=== PATIENT | female | born 1980 | race Caucasian/White ===

== ENCOUNTER 2017-07-19 21:36 | Observation (INO) | payer OTHER ==
[~2017-07-19] VITALS: Ht 165.1 cm; Wt 61.8 kg
[~2017-07-19 21:36] MED LIST: AMITRIPTYLINE H50 MG PO; BENADRYL25 MG PO; BENTYL10 MG PO; CYCLOBENZAPRINE10 MG PO; LEVOTHYROXINE125 MCG PO; NORCO 10-325 T1 EACH PO; OMEPRAZOLE20 MG PO; ULTRACET TABLE1 EACH PO
[2017-07-19] MEDS ORDERED: NORCO 5-325 TA1 EACH PO (21:54)
--- NOTE | 2017-07-20 01:28 | NUR ---
PATIENT TO FLOOR FROM ED, REPORT RECIEVED FROM MARY MEZA. PATIENT PRESENTED TO ED WITH N/V AND LEG CRAMPS. RECENT HX OF C-DIF, NEED SAMPLE FOR COLLECTION. PATIENT NASEA RESOLVED IN ED WITH PHENERGAN, ZOFRAN AND REGLAN. PAIN TOLERABLE AT THIS TIME RATES 0/10 ON PAIN SCALE. PATIENT HAS MEDICAL MARIJUANA CARD, HX OF GERD AND IBS. NO HOME MEDICATIONS AND NO KNOWN ALLERGIES TO MEDICATIONS. PATIENT OBSERVATION. NOW RESTING IN BED, CALL LIGHT IN REACH. INDEPENDANT IN ROOM.
--- NOTE | 2017-07-20 03:30 | NUR ---
PATIENT FEELING LIKE NAUSEA RETURNING, ADMINISTERED RECTAL PHENERGAN AND 0.5 MG ATIVAN IV. PATIENT UP TO BATHROOM, STOOL SAMPLE COLLECTED AND SENT. PATIENT VOIDING WELL. PATIENT REPORTS TORADOL EFFECTIVE WITH PAIN. NOW RESTING WITH EYES CLOSED.
--- NOTE | 2017-07-20 06:22 | NUR ---
PATIENT RESTED WELL SINCE ADMINISERING PHENERGAN PER RECTAL AND ATIVAN IV. VS STABLE. PATIENT CONTINUES TO VOID WELL. APPEARS COMFORTABLE RESTING WITH EYES CLOSED. AAOX3. USES CALL LIGHT APROPRIATLEY.
[2017-07-20] MEDS ORDERED: ACETAMINOPHEN-1 EACH PO (09:37)
[2017-07-20] MEDS ORDERED: [UNRECOGNIZED DRUG - REMARK] PO (09:42)
--- NOTE | 2017-07-20 09:46 | NUR ---
MED REC COMPLETE
--- NOTE | 2017-07-20 13:59 | NUR ---
PATIENT RESTING IN BED. PATIENT RATES PAIN AT A 6 OUT OF 10. PATIENT STATES SHE FEELS NAUSEATED, GIVEN EMESIS BAG. RN NOTIFIED. PATIENT UP TO BATHROOM BACK TO BED. PATIENT GIVEN ICE CHIPS. CALL LIGHT IN REACH. NO OTHER NEEDS AT THIS TIME.
--- NOTE | 2017-07-20 14:03 | NUR ---
PATIENT ALLOWED ICE CHIPS FOR COMFORT. ICE CHIPS PROVIDED AT BEDSIDE.
--- NOTE | 2017-07-20 14:21 | NUR ---
PT LAYING INBED ON LEFT SIDE TOWARDS DOOR. PLEASANT DEMEANOR, BUT OBVIOUSLY SHE IS IN PAIN. RN REFUGIO TO CARE FOR PT. EXTENDED A BLESSING TO HER, AND TOLD HER I WOULD BE PRAYING FOR HER. SHE THANKED ME-WILL FOLLOW KAITLYNN
--- NOTE | 2017-07-20 15:29 | NUR ---
PATIENTS FATHER IN ROOM. FATHER REQUESTING STRONGER PAIN MEDICINE AND WAS VERY CONCERNED. PATIENT RESTING, STILL FEELING NAUSEATED, STATED PAIN LEVEL WAS NOW AN 8 OUT OF 10. RN AND CHARGE NURSE NOTIFIED. CALL LIGHT IN REACH. NO OTHER NEEDS AT THIS TIME.
--- NOTE | 2017-07-20 18:44 | NUR ---
PATIENT RESTING IN BED, STATED PAIN LEVEL WAS A 5 OUT OF 10, AND THAT SHE HAD WATERY DIARRHEA BUT FLUSHED BEFORE THIS STEAM SERVICE INSPECTOR COULD SEE IT. RN NOTIFIED. FRESH ICE WATER AT BEDSIDE TABLE, CALL LIGHT IN REACH, NO OTHER NEEDS AT THIS TIME.
--- NOTE | 2017-07-20 18:55 | NUR ---
PATIENT WALKED ALONE TO HIS ROOM DOOR. SENIOR SHAREPOINT DEVELOPER WALKED WITH HIM BACK TO BATHROOM. THIS SENIOR SHAREPOINT DEVELOPER TALKED TO THE PATIENT ABOUT CALLING FOR HELP AND WAITING FOR THE HELP BEFORE HE GETS UP. PATIENT STATED THAT HE WAS TOLD HE CAN WALK AROUND IN HIS ROOM BY HIMSELF. PATIENT UNDERSTANDS TO PULL THE CALL CORD BEFORE HE STANDS UP IN BATHROOM. RN NOTIFIED AND WILL RENFORCE USING CALL LIGHT AND ASSISTANCE.
--- NOTE | 2017-07-20 19:12 | NUR ---
PATIENT HAS HAD C/O OF SOME KIND OF ABD DISCOMFORT AND OR NAUSEA FOR MOST OF DAY. SHE WAS ADVANCED TO FULL LIQUIDS AFTER SHE SHE STARTED BENTYL THIS AFTERNOON. BEFORE SHE WOULD SLEEP WITH 1MG OF ATIVAN IV AND 12.5 OF IV PHENERGAN, ZOFRAN AND KETORALAC SEEMED NOT TO HELP MUCH AT ALL.
--- NOTE | 2017-07-20 19:20 | NUR ---
RECEIVED REPORT, PT IS SLEEPING AT THIS TIME. CALL LIGHT IS WITHIN REACH.
--- NOTE | 2017-07-20 20:30 | NUR ---
PT IS AWAKE IN BED AND ASKED FOR ATIVAN FOR ANXIETY. PT STATES SHE HAS 7/10 ABDOMINAL CRAMPING PAIN AND DENIED BENTYL AT THIS TIME STATING SHE WANTS SOMETHING STRONGER BUT THE DOCTOR WOULD NOT PRESCRIBE IT. PT WAS OK WITH TAKING THE ATIVAN AT THIS TIME AND HOPED IT WOULD ALSO HELP HER SLEEP. BROUGHT PATIENT MIKO AND CHICKEN BROTH. SHE DENIES FURTHER NEEDS AT THIS TIME.
--- NOTE | 2017-07-21 00:34 | NUR ---
IV WAS BEEPING, PT STATED SHE NEEDS MORE ATIVAN. ADMINISTERED ATIVAN, PT DENIES FURTHER NEEDS AT THIS TIME
--- NOTE | 2017-07-21 03:30 | NUR ---
PT IS RESTING IN BED WITH EYES CLOSED, RESPIRATION ARE EVEN AND NONLABORED. CALL LIGHT IS WITHIN REACH.
--- NOTE | 2017-07-21 05:34 | NUR ---
PT SLEPT WELL MOST OF THE NIGHT. SHE REQUIRED ATIVAN X2 THROUGH THE NIGHT. PRN NORCO IS AVAILABLE IF NEEDED. PT TOLERATED BROTH AND JELLO WITHOUT NAUSEA. D5LR IS RUNNING AT 125MLS/HR. PT IS INDEPENDENT IN ROOM.
--- NOTE | 2017-07-21 07:41 | NUR ---
BEDSIDE REPORT RECEIVED FROM TWELVE MILE. PATIENT ASLEEP DURING REPORT. NO APPARENT DISTRESS NOTED. CALL LIGHT IN REACH. WILL CONTINUE TO MONITOR
--- NOTE | 2017-07-21 09:00 | NUR ---
PATIENT FOUND IN BED AWAKE, REPORTS GENERALIZED AND MILD ABD PAIN. NO NAUSEA. PATIENT ABLE TO EAT SOME JELLO AND DRINK SOME JUICE. LUNGS CLEAR, ABD SOFT AND TENDER TO PALPATION. BRUISES NOTED IN THE LOWER EXTREMITIES. NO PARENT DISTRESS. MORNING MEDS ADMINISTERED AND PATIENT WAS MEDICATED FOR PAIN AND ANXIETY. CALL LIGHT IN REACH. WILL CONTINUE TO MONITOR.
--- NOTE | 2017-07-21 09:45 | NUR ---
PATIENT SITTING UP IN BED EATING BREAKFAST. PATIENT STATED SHE WASNT IN PAIN BECAUSE THEY HAD JUST GIVEN HER A PAIN PILL, BUT JUST DIDNT FEEL LIKE EATING AND FELT NAUSEATED. CALL LIGHT IN REACH. FRESH ICE WATER ON BEDSIDE TABLE. NO OTHER NEEDS AT THIS TIME.
[2017-07-21] MEDS ORDERED: PIMTREA 28 DAY1 EACH PO (10:27)
--- NOTE | 2017-07-21 10:28 | NUR ---
MD ADVANCED DIET TO GENERAL AND ADVANCED TOLERATED. ORDERED BREAKFAST TRAY FOR PATIENT. RESTING IN BED AT THIS TIME.
[2017-07-21] MEDS ORDERED: DICYCLOMINE HCL10 MG PO (11:41)
[2017-07-21] MEDS ORDERED: PROMETHAZINE12.5 M1 PO (11:42)
== END 2017-07-21 13:10 | disposition home or self-care (01) ==
LOC: ED 21:36 → MS 21:38
PROVIDERS: ADMIT Internal Medicine
DX: A08.4 Viral intestinal infection, unspecified (principal); K58.9 Irritable bowel syndrome, unspecified; F41.9 Anxiety disorder, unspecified; E03.9 Hypothyroidism, unspecified; G89.4 Chronic pain syndrome; Z87.891 Personal history of nicotine dependence; Z86.19 Personal history of other infectious and parasitic diseases; Z79.3 Long term (current) use of hormonal contraceptives; Z79.891 Long term (current) use of opiate analgesic; Z79.899 Other long term (current) drug therapy
CPT/HCPCS: 80053; 81001; 83690; 84703; 85025; 87045; 87046; 87493; 96361; 96374; 96375; 96376; 99285; G0378; J1170; J1885; J2060; J2405; J2550; J2765; J3480; J7030; J7120

== ENCOUNTER 2018-05-17 06:45 | Day surgery (SDC) | payer OTHER ==
[~2018-05-17] VITALS: Ht 165.1 cm; Wt 61.2 kg
[~2018-05-17 06:45] MED LIST changes: +ACETAMINOPHEN-1 EACH PO; +CIPRO500 MG PO; +DICYCLOMINE HCL10 MG PO; +FIRVANQ25 MG/1 ML PO; +LAMOTRIGINE100 MG PO; +LAMOTRIGINE150 MG PO; +LEVOTHYROXINE150 MCG PO; +NORCO 5-325 TA1 EACH PO; +PIMTREA 28 DAY1 EACH PO; +PRILOSEC10 M1 PO; +PROMETHAZINE HC25 M1 PO; +PROMETHAZINE12.5 M1 PO; +PYRIDIUM200 MG PO; +ZOFRAN ODT4 MG PO; +[UNRECOGNIZED DRUG - REMARK] PO
--- NOTE | 2018-05-17 08:45 | NUR ---
PATIENT UP TO BATHROOM. TAMPON REMOVED. PATIENT AMBULATES WELL WITH RN STANDBY. PATIENT BACK IN BED.
--- NOTE | 2018-05-17 09:41 | NUR ---
05/17/18 0941 Dunia Durbin 0932- PT ARRIVES TO PACU. AROUSABLE TO VOICE. PT INSTANTLY BACK TO SLEEP. RESP EVEN AND UNLABORED. OXYGEN SAT HIGH 90'S TO 100% ON 6L VIA MASK. 0936- OXYGEN TURNED OFF. OXYGEN SAT HIGH 90'S TO 100% ON RA.
--- NOTE | 2018-05-17 11:28 | NUR ---
LE 1015: ICED WATER AND JELLO GIVEN. PATIENT TOLERATING THAT WELL. AKASH ESTEVEZ ON WARM. LE 1100: PATIENT UP TO THE BATHROOM WITH RN STANDBY. PATIENT AMBULATES WELL AND REPORTS BLOOD TINGED VOID. LE 1125: DC INSTRUCTIONS GIVEN. PATIENT VERBALIZES UNDERSTANDING OF INSTRUCIONS AND IS DRESSING HERSELF. PATIENT TRANSFERS HERSELF TO .
--- NOTE | 2018-05-17 12:48 | NUR ---
PT ALERT, ORIENTED AND SUPPORTED BY HER FATHER. PT SEEMS RELAXED, INFORMED AND HAD NO QUESTIONS. THANKED ME FOR VISITING, EXTENDED A BLESSING. WILL FOLLOW NEEDED
--- NOTE | 2018-05-18 19:21 | OR ---
[facility] [address], [place] [address] Signed DATE OF OPERATION: 05/17/2018 SURGEON: Patricia Ernandez MD PREOPERATIVE DIAGNOSES: 1. Interstitial cystitis. 2. History of recurrent urinary tract infection. POSTOPERATIVE DIAGNOSES: 1. Interstitial cystitis. 2. History of recurrent urinary tract infection. NAME OF PROCEDURE: Diagnostic cystoscopy with hydrodistention. ANESTHESIA: General LMA. ESTIMATED BLOOD LOSS: Minimal. COMPLICATIONS: None. SPECIMENS: None. DRAINS: None. INDICATIONS FOR PROCEDURE: Shelby is a very pleasant 38-year-old female with a history of chronic abdominopelvic discomfort, recurrent UTIs, and dehydration. She was recently evaluated at [facility] on May 05 and admitted for dehydration/urinary tract infection. She does reportedly experience intermittent urinary tract infections. However, I have yet to see any positive cultures. She also has a known history of interstitial cystitis for which she has elected to undergo diagnostic cystoscopy with hydrodistention today. After discussion of the risks and benefits of the procedure, the patient elected to proceed. OPERATIVE FINDINGS: Electronically Signed By: PATRICIA ERNANDEZ MD 05/18/18 1921 PATIENT NAME: SHELBY NAVARRO OPERATIVE REPORT DATE OF : 78 REPORT #: [id number] PHYSICIAN: PATRICIA ERNANDEZ MD PCP: NINFA HEATH REPORT IS CONFIDENTIAL AND NOT TO BE RELEASED WITHOUT AUTHORIZATION [facility] [address], [place] [address] Signed 1. Cystoscopy reveals no evidence of any suspicious masses, lesions, or stones. Bilateral ureteral orifices are in their normal anatomic location effluxing clear urine. 2. Overall, the bladder mucosa appears within normal limits, with no evidence of any Hunner ulcers or petechiae. 3. The patient's bladder had a total capacity of 1200 mL, with evidence of good compliance. There was no significant leakage of fluid during filling. The irrigant was held within her bladder for a total of 8 minutes prior to release of the fluid. DESCRIPTION OF PROCEDURE: After informed consent was obtained, the patient was taken back to the operating room. She was transferred from the [facility] to the operating room table, where general anesthesia was induced. She was placed in the dorsal lithotomy position and the genitalia prepped and draped in standard sterile fashion. Using a 30-degree lens on a 22-1/2-Comoran introducer, a rigid cystoscope was inserted through the urethra into her bladder under direct visualization. Panendoscopic views of the bladder were then obtained. Please see those findings. I emptied the patient's bladder twice after irrigating it a couple of times and then I began to fill the bladder. Please see those findings. The patient's bladder filled approximately to 1200 mL and was kept at that capacity for approximately 8 minutes. The patient's bladder was then drained and the cystoscope was then removed. The patient tolerated the procedure well without any complication. She will now be transferred to the postanesthesia care unit in stable condition. DISPOSITION: I discussed the details of today's procedure with the patient and answered all of her questions. She will be sent home today with Cipro for a total of 7 days, along with Pyridium 200 mg p.o. b.i.d. p.r.n. dysuria, dispense #15. She will be scheduled to return to clinic for her first postoperative evaluation in approximately 6 weeks. MD VIC Altamirano/MODL /[id number] Copies: Electronically Signed By: PATRICIA ERNANDEZ MD 05/18/18 192 PATIENT NAME: SHELBY NAVARRO LOYDA OPERATIVE REPORT DATE OF : 78 REPORT #: [id number] PHYSICIAN: PATRICIA ERNANDEZ MD PCP: NINFA HEATH REPORT IS CONFIDENTIAL AND NOT TO BE RELEASED WITHOUT AUTHORIZATION [facility] [address] [place] [id number] Signed ~ Electronically Signed By: PATRICIA ERNANDEZ MD 05/18/181920 PATIENT NAME: SHELBY NAVARRO OPERATIVE REPORT DATE OF : [birth year] REPORT #: [id number] PHYSICIAN: PATRICIA ERNANDEZ MD PCP: NINFA HEATH REPORT IS CONFIDENTIAL AND NOT TO BE RELEASED WITHOUT AUTHORIZATION
== END 2018-05-17 11:30 | disposition home or self-care (01) ==
LOC: DS 06:45 → OPS 06:45 → DS 09:00 → OPS 09:00
PROVIDERS: Urology
PROC: 0T7B8ZZ Dilation of Bladder, Via Natural or Artificial Opening Endoscopic (ICD-10-PCS; principal; 2018-05-17 09:00)
DX: N30.11 Interstitial cystitis (chronic) with hematuria (principal); E03.9 Hypothyroidism, unspecified; K58.9 Irritable bowel syndrome, unspecified; E86.0 Dehydration; Z98.890 Other specified postprocedural states; Z87.440 Personal history of urinary (tract) infections; Z79.1 Long term (current) use of non-steroidal anti-inflammatories (NSAID); Z79.899 Other long term (current) drug therapy; Z87.891 Personal history of nicotine dependence
CPT/HCPCS: 00910; 36415; 81001; 84703; 85025; 85610; 87077; 87088; 87186; J0696; J1100; J1885; J2250; J2405; J2550; J2704; J3010; J7120

== ENCOUNTER 2018-07-01 19:16 | Emergency (ER) | payer OTHER ==
[~2018-07-01] VITALS: Ht 165.1 cm; Wt 63.5 kg
--- OUTSIDE RECORDS SUMMARY | 2018-07-01 19:18 | XMS ---
PreManage Notification: YARELI NAVARRO Security Marriage Therapist Events No recent Security Events currently on file CRITERIA MET - MARCINP CARE PROVIDERS LJ DUQUE Nurse Practitioner: Family Current PHONE: Unknown LJ DUQUE Primary Care Current PHONE: Unknown Javier Shannon MD Primary Care Current PHONE: Unknown orelizabeth Case or Tower Switch Operator Current PHONE: Unknown Susy has no Care Guidelines for this patient. Kristel VISIT COUNT (12 MO.) [address] [place] [address] [facility] TOTAL 6 NOTE: Visits indicate total known visits. ED/UCC VISIT TRACKING (12 MO.) 07/01/2018 19:17 [facility] [place] TYPE: Emergency COMPLAINT: - DIZZINESS 05/05/2018 19:07 [facility] [place] TYPE: Emergency DIAGNOSES: - Acute cystitis with hematuria - back and side pain nausea vomiting abd pain - Interstitial cystitis (chronic) without hematuria 03/25/2018 18:03 [facility] [place] TYPE: Emergency DIAGNOSES: - SEVERE ABD PAIN, PUKING WITH BLOOD 03/20/2018 18:39 [facility] [place] TYPE: Emergency COMPLAINT: - CHEST PAIN/SOB DIAGNOSES: - Epigastric pain - Personal history of nicotine dependence - Gastro-esophageal reflux disease without esophagitis - Other skilled nursing (current) drug therapy 11/20/2017 16:07 [facility] [place] TYPE: Emergency COMPLAINT: - C-DIFF INFECTION DIAGNOSES: - Hypomagnesemia - Unspecified abdominal pain - Other chronic pain - Hypokalemia - 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 - manager intermediate (current) use of opiate analgesic - ENTEROCOLITIS DUE TO CLOSTRIDIUM DIFFICILE, RECURRENT - Hypothyroidism, unspecified - manager intermediate (current) use of hormonal contraceptives - Irritable bowel syndrome without diarrhea 07/19/2017 21:37 [facility] [place] TYPE: Emergency COMPLAINT: - N/V/D,ABD CRAMPING INPATIENT VISIT TRACKING (12 MO.) 03/25/2018 18:03 [facility] [place] TYPE: Medical Surgical DIAGNOSES: - SEVERE ABD PAIN, PUKING WITH BLOOD - Noninfective gastroenteritis and colitis, unspecified - Acidosis 11/20/2017 16:08 [facility] [place] TYPE: Medical Surgical COMPLAINT: - C-DIFF INFECTION DIAGNOSES: - Other chronic pain - snf (current) use of hormonal contraceptives - Hypokalemia - snf (current) use of opiate analgesic - Enterocolitis due to Clostridium difficile, recurrent - Hypothyroidism, unspecified - Irritable bowel syndrome without diarrhea - Unspecified abdominal pain - Hypomagnesemia - 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
[2018-07-01] MEDS ORDERED: SYNTHROID175 MCG PO (19:29)
== END 2018-07-01 21:00 | disposition home or self-care (01) ==
LOC: ED 19:16
DX: S06.0X9A Concussion with loss of consciousness of unspecified duration, initial encounter (principal); K21.9 Gastro-esophageal reflux disease without esophagitis; Z90.49 Acquired absence of other specified parts of digestive tract; Z79.899 Other long term (current) drug therapy; W01.10XA Fall on same level from slipping, tripping and stumbling with subsequent striking against unspecified object, initial encounter
CPT/HCPCS: 70450; 96361; 96374; 99284-25; J2405; J7030

== ENCOUNTER 2018-10-06 07:55 | Day surgery (SDC) | payer OTHER ==
[~2018-10-06] VITALS: Ht 165.1 cm; Wt 63.5 kg
[~2018-10-06 07:55] MED LIST changes: +LAMICTAL150 MG PO; +SYNTHROID175 MCG PO
[2018-10-06] MEDS ORDERED: NORCO 5-325 TA1 EACH PO (08:09)
--- NOTE | 2018-10-07 12:57 | OR ---
[facility] [address], [place] [address] Signed DATE OF OPERATION: 10/06/2018 SURGEON: Shayy Becerra MD SIDEHAND: Shane Aguilera MD PREOPERATIVE DIAGNOSES: Pelvic pain, dysmenorrhea, interstitial cystitis, irritable bowel syndrome. POSTOPERATIVE DIAGNOSES: Pelvic pain, dysmenorrhea, interstitial cystitis, irritable bowel syndrome. PROCEDURES PERFORMED: Total laparoscopic hysterectomy, bilateral salpingectomy, and cystoscopy. ANESTHESIA: General ET. ESTIMATED BLOOD LOSS: 50 mL. DRAINS: Berry catheter. PACKS: None. INDICATIONS AND FINDINGS: The patient is a 38-year-old female, 2, para 1, SAB 1, who has been having worsening pelvic pain and dysmenorrhea. She has undergone prior tubal ligation, but is also on control pills to manage her periods. Unfortunately, she also has irritable bowel syndrome as well as significant frequent nausea and vomiting and dehydration. She also has interstitial cystitis. The patient was extensively counseled and she wished to proceed with hysterectomy, though, she was strongly reminded that this would not control any pain from her interstitial cystitis or her irritable bowel syndrome. At the time of surgery exam under anesthesia was normal. At the time of laparoscopy, the pelvis appeared normal other than prior tubal ligation and some scarring of the bladder to the anterior uterus following her . Electronically Signed By: SHAYY BECERRA MD 10/07/18 1257 PATIENT NAME: HOYARELI SMITH OPERATIVE REPORT DATE OF : 78 REPORT #: [id number] PHYSICIAN: SHAYY BECERRA MD PCP: NINFA HEATH REPORT IS CONFIDENTIAL AND NOT TO BE RELEASED WITHOUT AUTHORIZATION [facility] [address], [place] [address] Signed DESCRIPTION OF PROCEDURE: The patient was prepped and draped in the dorsal lithotomy position. A weighted speculum was placed and the anterior lip of the cervix was visualized and grasped with a single-tooth tenaculum. The cavity was sounded to 7 cm. The endocervical canal was then dilated and the VCare cannula was placed and the balloon inflated at the fundus. The tenaculum and speculum were removed and the cup was fitted over the cervix and a locking cup fitted into place. Attention was then directed above. The infraumbilical area was injected with 0.5% Marcaine plain and incision was made with a knife. Each layer was then serially elevated and incised until the fascia was opened and identified. Stay sutures were placed on the fascia. The peritoneum was opened bluntly and the Richard cannula was placed and tied into place. Placement of the scope confirmed proper positioning. CO2 was then introduced in the abdomen. The initial sweep of the abdomen appeared fairly normal pelvis and the decision was made to proceed. The secondary ports were placed laterally and slightly below the umbilicus. These areas were transilluminated and injected with the Marcaine and incision made with a knife, and the trocars were placed under direct vision. The left port was a 5 mm port and the right was the Veress needle followed by the expanding port. Following this, the LigaSure [place] device was used to serially coagulate and divide the left mesosalpinx and the specimen was removed. Following this, the left utero-ovarian pedicle and left round ligament were serially coagulated and divided. Dissection was done posteriorly allowing the posterior peritoneum to come down. There was some scarring anteriorly because of the prior and this was divided after coagulation high on the uterus given the scarring. However, this allowed the uterine vessels to be skeletonized and these were coagulated multiple times and then divided. Following this, attention was directed to the patient's right side. Again, the tube on the right was serially coagulated along the mesosalpinx and excised. The right utero-ovarian pedicle and right round ligament were serially coagulated and divided. The anterior peritoneum could be incised allowing for a partial bladder flap. There was some less scarring on the patient's right compared to the left. The peritoneum was taken down posteriorly as well. The uterine vessels were skeletonized and were coagulated multiple times and divided. Further dissection was done anteriorly, which allowed the bladder to come down more fully off the cervix and the outline of the cup could be identified at that time anteriorly. Further dissection was done both posterior and anteriorly and more on the patient's left side around the uterine vessel area and at that point, it was felt that the specimen was capable being removed. The [employer] device was used to separate the specimen from the cuff. Following this, the specimen was pulled out through the vagina intact. A glove with a wet lap tape was placed into the vagina, which allowed the pneumoperitoneum to re-accumulate in the abdomen. The pelvis was copiously irrigated and inspected. There was some bleeding points along the cuff and into the left and right uterine vessel areas and these were coagulated using the Maryland device. There were a few bleeding points on the bladder flap area and these were controlled using the Electronically Signed By: SHAYY BECERRA MD 10/07/18 1257 PATIENT NAME: YARELI NAVARRO OPERATIVE REPORT DATE OF : 78 REPORT #: [id number] PHYSICIAN: SHAYY BECERRA MD PCP: NINFA HEATH REPORT IS CONFIDENTIAL AND NOT TO BE RELEASED WITHOUT AUTHORIZATION [facility] [address], [place] [address] Signed spatula tip and monopolar cautery. At this point, it was felt that there was good hemostasis and the cuff was closed using the EndoStitch that was begun at the patient's right uterosacral ligament taking care to incorporate both the peritoneum as well as the vaginal mucosa posteriorly and anteriorly and this was run to the patient's left uterosacral ligament and then back to the center. The abdomen was again copiously irrigated, inspected, and good hemostasis was noted. The bladder flap area was fairly raw given her prior scarring and Evicel was dribbled over the cuff to aid in further in hemostasis. The instruments were removed from the abdomen after allowing as much CO2 as possible to escape. The fascial incision at the umbilicus was re-identified and closed with a running suture of 0 Vicryl. The skin incisions were closed with subcuticular sutures of 3-0 Vicryl Rapide. Attention was directed down below and the vaginal packing was removed as was the Berry catheter. Cystoscopy was then done. The patient had received IV fluorescein. The bladder was fully evaluated and there was no evidence of any injury to the bladder. Both ureteral orifices were identified and freed. The egress of the fluorescein stained urine was seen coming from each location. At this point, the cystoscopy was complete and the bladder drained. The Berry catheter was replaced. All sponge and needle counts were correct. She tolerated the procedure well and was taken to the recovery room in good condition. Shayy Becerra MD PJW/JUNITOL /[id number] cc: MD Molly House FNP Copies: SHANE AGUILERA MD, SHARA FNP ~ Electronically Signed By: SHAYY BECERRA MD 10/07/18 1257 PATIENT NAME: YARELI NAVARRO OPERATIVE REPORT DATE OF : 78 REPORT #: [id number] PHYSICIAN: SHAYY BECERRA MD PCP: NINFA HEATH REPORT IS CONFIDENTIAL AND NOT TO BE RELEASED WITHOUT AUTHORIZATION
== END 2018-10-07 09:30 | disposition home or self-care (01) ==
LOC: DS 07:55 → MS 17:30 → DS 10-07 09:30
PROVIDERS: Obstetrics & Gynecology
PROC: 0UT94ZZ Resection of Uterus, Percutaneous Endoscopic Approach (ICD-10-PCS; principal; 2018-10-06 09:30)
PROC: 0UT74ZZ Resection of Bilateral Fallopian Tubes, Percutaneous Endoscopic Approach (ICD-10-PCS; 2018-10-06 09:30)
DX: N87.9 Dysplasia of cervix uteri, unspecified (principal); N88.8 Other specified noninflammatory disorders of cervix uteri; N30.10 Interstitial cystitis (chronic) without hematuria; K58.2 Mixed irritable bowel syndrome; N94.6 Dysmenorrhea, unspecified; K21.9 Gastro-esophageal reflux disease without esophagitis; Z79.899 Other long term (current) drug therapy
CPT/HCPCS: 00840; 51702; 51798; J1100; J1644; J1885; J2250; J2270; J2405; J2550; J2704; J2765; J3010; J7060; J7120

== ENCOUNTER 2019-01-19 16:52 | Emergency (ER) | payer OTHER ==
[~2019-01-19] VITALS: Ht 165.1 cm; Wt 63.5 kg
--- OUTSIDE RECORDS SUMMARY | 2019-01-19 16:54 | XMS ---
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 EIsabell VISIT COUNT (12 MO.) 2 [facility] [address] [facility] TOTAL 5 NOTE: Visits indicate total known visits. ED/UCC VISIT TRACKING (12 MO.) 01/19/2019 16:53 [facility] [place] TYPE: Emergency COMPLAINT: - ABD/PELVIC PAIN 07/01/2018 19:17 [facility] [place] TYPE: Emergency COMPLAINT: - DIZZINESS DIAGNOSES: - Acquired absence of other specified parts of digestive tract - Concussion with loss of consciousness of unspecified duration, initial encounter - Gastro-esophageal reflux disease without esophagitis - Other snf (current) drug therapy - Dizziness and giddiness - Fall on same level from slipping, tripping and stumbling with subsequent striking against unspecified object, initial encounter 05/05/2018 19:07 [facility] [place] TYPE: Emergency DIAGNOSES: - Acute cystitis with hematuria - back and side pain nausea vomiting abd pain - Interstitial cystitis (chronic) without hematuria 03/25/2018 18:03 [facility] [place] TYPE: Emergency DIAGNOSES: - SEVERE ABD PAIN, PUKING WITH BLOOD 03/20/2018 18:39 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
[2019-01-19] MEDS ORDERED: NORCO 5-325 TA1 EACH PO (18:43)
[2019-01-19] MEDS ORDERED: ONDANSETRON ODT8 MG PO (18:43)
== END 2019-01-19 18:53 | disposition home or self-care (01) ==
LOC: ED 16:52
DX: N83.201 Unspecified ovarian cyst, right side (principal); K21.9 Gastro-esophageal reflux disease without esophagitis; Z87.891 Personal history of nicotine dependence; Z79.899 Other long term (current) drug therapy
CPT/HCPCS: 76830; 76856; 80053; 85025; 96374; 96375; 99284-25; J1170; J1885; J2405; J7040

== ENCOUNTER 2019-01-21 12:38 | Inpatient (IN) | payer OTHER ==
[~2019-01-21] VITALS: Ht 167.6 cm; Wt 52.2 kg
--- NOTE | ~2019-01-21 | CONS ---
[facility] [address] [place], [place] [address] Draft DATE OF CONSULTATION: 01/22/2019 REQUESTING PHYSICIANS: 1. Fernando Roberts MD. 2. Ran Kerr MD. HISTORY OF PRESENT ILLNESS: The patient is a 38-year-old female, 2, para 1, SAB 1, status post a TLH-BS for benign indications on October 06. The patient had a previous uncomplicated postop course and is more than 14 weeks from her surgery. She has had granulation tissue off and on, which was last treated several weeks ago. The patient was seen in the office on Thursday the with acute right lower quadrant pain following intercourse. The patient had terrible pain following this with a sensation of going to faint. She stayed in bed pretty much all day that day. She also had some vaginal spotting that day. She was seen in the emergency room after this episode with normal vital signs and a slightly elevated white count of 15. She was afebrile. She had an ultrasound, which showed a small amount of pelvic fluid, was otherwise negative for any masses or other issues. She was discharged home with pain medicine. She felt continually better following her ER visit and felt completely normal as well as normal on Thursday morning. However, on Thursday, she began having some nausea with subsequent vomiting. She began having more diffuse abdominal pain. The pain now is not localized to the right lower quadrant, though that might be the worst location. It is constant. It is worse with any movement or with a full bladder. She also developed fever on Thursday night up to 101.7. The patient also noticed a copious clear discharge vaginally beginning on the . REVIEW OF SYSTEMS: Positive for the fever. Positive for abdominal pain, nausea, vomiting, and constipation. She also reports she had anorexia. She is having abnormal vaginal discharge, though no dysuria. PAST MEDICAL HISTORY: Allergies: None. MEDICATIONS: Levothyroxine 175 mcg. PROBLEM LIST: Constipation, reflux, unspecified acquired hypothyroidism, interstitial cystitis, irritable bowel, recurrent UTIs. PAST SURGICAL HISTORY: 1. On October 06, TLH-BS. PATIENT NAME: YARELI NAVARRO CONSULTATION DATE OF : 78 REPORT #: [id number] PHYSICIAN: LASHANDA DALTON MD PCP: NINFA HEATH REPORT IS CONFIDENTIAL AND NOT TO BE RELEASED WITHOUT AUTHORIZATION [facility] [address] [place], [place] [address] Draft 2. 05/17/2018, cystoscopy. 3. 07/12/2015, bilateral tubal ligation. . 10/2013, laparoscopic cholecystectomy. 11/2012, left wrist surgery. 07/2011, . 01/1997, appendectomy. FAMILY HISTORY: Positive for her mother with depression. Maternal grandfather, lymphoma. Maternal grandmother, depression. Maternal uncle, depression with suicide. Maternal aunt with depression and suicide. SOCIAL HISTORY: Alcohol use none. She is . 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 She is a former smoker. PHYSICAL EXAMINATION: VITAL SIGNS: Her blood pressure is 93/59, pulse 86, and temp 97.7. GENERAL: She is a well-developed, well-nourished female, in moderate distress, lying quietly in the bed. HEART: Regular rate and rhythm without murmur. LUNGS: Clear. ABDOMEN: With positive bowel sounds, but diffusely tender, though worse in the right lower quadrant. She has diffuse rebound as well. PELVIC: Deferred. LABORATORY DATA: CT scan reveals moderate inflammatory changes throughout the pelvis and lower abdominal mesentery. There is some poorly defined and inflamed appearing loops of small bowel within the pelvis, inflammatory changes around the rectum and distal sigmoid. The ovaries were poorly visualized, but appeared normal. There was a small volume of pelvic fluid and mild circumferential bladder wall thickening. Labs this morning revealed a white count of 10.7, H and H of 10.5 and 31.4, neutrophils 84, lymphocytes 7.5, monocytes 6.8, sedimentation rate 21. Chemistry panel is unremarkable. Urine is unremarkable as well. IMPRESSION: Worsening pelvic pain in a woman, who is more than 14 weeks from a [facility]. She has some inflammatory changes in the pelvis on CT scan. She also has had new onset of clear vaginal discharge. I am concerned that she may have developed a small bowel fistula to the vaginal cuff and the diagnosis is uncertain. I think further evaluation is needed. A laparoscopy would allow for evaluation of the abdomen and pelvis. If there is a fistula noted, this can be repaired. Dr. Kerr will also be attending the surgery in case his services are needed. The patient has been extensively counseled. She understands the risks of surgery including infection and bleeding are present. She also PATIENT NAME: YARELI NAVARRO CONSULTATION DATE OF : 78 REPORT #: [id number] PHYSICIAN: LASHANDA DALTON MD PCP: NINFA HEATH REPORT IS CONFIDENTIAL AND NOT TO BE RELEASED WITHOUT AUTHORIZATION [address] [address] [place] understands that a possible laparotomy may be needed for repair should the bowel issue be encountered. She had no questions, requested no further information. PLAN: Laparoscopy, possible laparotomy, possible repair of bowel, . MD RYAN Rojas/YASMIN /[id number] Copies: ~ PATIENT NAME: YARELI NAVARRO CONSULTATION DATE OF : 78 REPORT #: [id number] PHYSICIAN: LASHANDA DALTON MD PCP: NINFA HEATH REPORT IS CONFIDENTIAL AND NOT TO BE RELEASED WITHOUT AUTHORIZATION
[~2019-01-21 12:38] MED LIST changes: +ONDANSETRON ODT8 MG PO
--- OUTSIDE RECORDS SUMMARY | 2019-01-21 12:40 | XMS ---
PreManage Notification: YARELI NAVARRO [place] [employer] Events No recent Security Events currently on file CRITERIA MET - PDMP - [facility] - 2 Visits in 30 Days CARE PROVIDERS Anamika Bonilla Nurse Practitioner: 07/02/2018-Current PHONE: Unknown Molly Duque Nurse Practitioner: Family Lenard JANSENP PHONE: Unknown MOLLY DUQUE Primary Care Current PHONE: Unknown Javier Shannon MD Primary Care Current PHONE: Unknown or_viktor Case or Account Classification Clerk Current PHONE: Unknown Susy has no Care Guidelines for this patient. Kristel VISIT COUNT (12 MO.) [address] Darian Yip TOTAL 6 NOTE: Visits indicate total known visits. ED/UCC VISIT TRACKING (12 MO.) 01/21/2019 12:38 [facility] TYPE: Emergency COMPLAINT: - ABD PAIN 01/19/2019 16:53 [facility] TYPE: Emergency COMPLAINT: - ABD/PELVIC PAIN 07/01/2018 19:17 [facility] TYPE: Emergency COMPLAINT: - DIZZINESS DIAGNOSES: - Acquired absence of other specified parts of digestive tract - Concussion with loss of consciousness of unspecified duration, initial encounter - Gastro-esophageal reflux disease without esophagitis - Other chcf (current) drug therapy - Dizziness and giddiness - Fall on same level from slipping, tripping and stumbling with subsequent striking against unspecified object, initial encounter 05/05/2018 19:07 [facility] OR TYPE: Emergency DIAGNOSES: - Acute cystitis with hematuria - back and side pain nausea vomiting abd pain - Interstitial cystitis (chronic) without hematuria 03/25/2018 18:03 [facility] TYPE: Emergency DIAGNOSES: - SEVERE ABD PAIN, PUKING WITH BLOOD 03/20/2018 18:39 [facility] TYPE: Emergency COMPLAINT: - CHEST PAIN/SOB DIAGNOSES: - Epigastric pain - Personal history of nicotine dependence - Gastro-esophageal reflux disease without esophagitis - Other chcf (current) drug therapy INPATIENT VISIT TRACKING (12 MO.) 03/25/2018 18:03 [facility] TYPE: Medical Surgical DIAGNOSES: - SEVERE ABD PAIN, PUKING WITH BLOOD - Noninfective gastroenteritis and colitis, unspecified - Acidosis [email or web address]
--- NOTE | 2019-01-21 17:43 | NUR ---
1644: PT ARRIVED TO MED-SURG AND ORIENTED TO THE ROOM AND GIVEN THE CALL MANDUJANO. PT ARRIVED WITH HER MOTHER FROM THE ED. SHE STATES SHE HAS ABD PAIN THAT HAS BEEN WORSE SINCE . PT MEDICATED FOR PAIN, SEE EMAR. PT ALERT AND ORIENTED. TEMP 101.1 AND WAS MEDICATED WITH TYLENOL AND GIVEN AN IS AND INSTRUCTED IN IT'S USE. PT NOW STATES HER PAIN LEVEL IS A 6/10 WHICH IS DOWN FROM AN 8.
--- NOTE | 2019-01-21 18:47 | NUR ---
PT STATES HER ABD PAIN IS A 5/10 WHICH IS NOW ACCEPTABLE. SHE COMPAINS OF NAUSEA AND WAS MEDICATED ORDERED, SEE EMAR.
--- NOTE | 2019-01-21 20:15 | NUR ---
PATIENT REQUESTED PAIN MEDICATION, PRIMARY RN NOTIFIED.
--- NOTE | 2019-01-21 22:15 | NUR ---
PATIENT RESTING QUIETLY AT THIS TIME. CALL LIGHT IN REACH.
--- NOTE | 2019-01-21 23:25 | NUR ---
PATIENT WOKE UP WHEN I CAME IN TO CHANGE SOME IV FLUIDS. PAIN IN THE ABD IS 7/10, BUT SHE SAYS SHE IS DOING OK AT THIS TIME.
--- NOTE | 2019-01-22 00:44 | NUR ---
PATIENT HAVING 8/10 ABD PAIN AND GOT 2MG IV MS, PATIENT GOING TO TRY AND GO BACK TO SLEEP. CALL LIGHT IN REACH, WARM BLANKET GIVEN, NO OTHER NEEDS AT THIS TIME.
--- NOTE | 2019-01-22 02:06 | NUR ---
PATIENT GETTING UP TO THE BATHROOM WITH TRA MOODY.
--- NOTE | 2019-01-22 02:18 | NUR ---
V/S AND I&O TAKEN AND RECORDED. S BA TO USE THE BEDSIDE COMMODE. PATIENT REQUESTED MEDS FOR NAUSEA. PRIMARY RN NOTIFIED.
--- NOTE | 2019-01-22 02:20 | NUR ---
WARM BALNKET PROVIDED. ICE WATER REFILLED.
--- NOTE | 2019-01-22 02:27 | NUR ---
PATIENT NAUSEATED AFTER USING THE REST ROOM AND WAS GIVEN 25MG PHENERGAN IN 20MLS NS. PATIENT GOING TO TRY AND GO BACK TO SLEEP. CALL LIGHT IN REACH.
--- NOTE | 2019-01-22 03:48 | NUR ---
PATIENT RESTING QUIETLY NOW SUPINE, RESPIRATIONS REGULAR AND EVEN, CALL LIGHT IN REACH.
--- NOTE | 2019-01-22 06:38 | NUR ---
PATIENT HAD BEEN SLEEPING. HAD TO AWAKEN HER FOR VS. SHE GOT UP TO THE BATHROOM AND THEN WAS HAVING 9/10 AND PAIN SHARP AND CRAMPING. PATIENT HAS HAD 2MG OF MS X 3 THIS SHIFT IV FOR THE SAME TYPE OF PAIN. PATIENT ALSO HAS GOTTEN NAUSEATED X3 WHEN GETTING UP AND HAS HAD ZOFRAN X2 AND PHENERGAN X1. PATIENT RESTING QUIETLY RIGHT NOW. PATIENT HAD AN ORAL TEMP THIS AM OF 101.5F AND WAS GIVEN 650MG PO TYLENOL AND WILL RECHECK AT SHIFT CHANGE. CALL LIGHT IN REACH.
--- NOTE | 2019-01-22 07:34 | NUR ---
0727: BEDSIDE REPORT RECIEVED. PT RESTING IN HER BED, TEMP IS 99.4 AT THIS TIME. CALL MANDUJANO WITHIN REACH.
--- NOTE | 2019-01-22 08:41 | NUR ---
PT WAS SLEEPING WHEN I ARRIVED INTO THE ROOM. SHE AWOKE TO VOICE AND STATES HER PAIN IS AN 8/10. PT UPDATED TO HER POC TODAY AND SHE STATES UNDERSTANDING. CALL MANDUJANO WITHIN REACH.
--- NOTE | 2019-01-22 09:31 | NUR ---
PT REQUESTING PAIN MEDICATION, RATING PAIN 8/10 TO ABD, GIVEN 2MG IV MORPHINE PER ORDER. LAB IN ROOM DRAWING BLOOD CULTURES. PT DENIES OTHER NEEDS AT THIS TIME.
--- NOTE | 2019-01-22 09:44 | NUR ---
A MESSAGE WAS LEFT FOR THE DC OPERATING SYSTEM DESIGNER TO COME SEE THE PT.
--- NOTE | 2019-01-22 09:45 | NUR ---
PT NOW STATES HER PAIN IS A 5-6/10 AND IS "DECREASING".
--- NOTE | 2019-01-22 10:18 | NUR ---
Pt now states her pain level is a 5 which is acceptable and she is visiting with her mother.
--- NOTE | 2019-01-22 13:01 | NUR ---
Pt states her abd pain is now an 8 and she was medicated for pain, see emar. Pt denies any other problems at this time.
--- NOTE | 2019-01-22 14:04 | NUR ---
PT TO OR WITH MARY WILKINS AND BENEDICT GARCIA.
--- NOTE | 2019-01-22 15:54 | NUR ---
01/22/19 1554 Tangela Ramirez 1540: PT ARRIVES TO PACU FROM OR WITH EYES CLOSED, ORAL AIRWAY IN PLACE AND JAW THRUST PERFOMED. PT SATS 100% ON 10 L O2 VIA MASK. PT NON AROUSAL TO VERBAL OR PHYSICAL STIMULI. 1545: MARY NAVARRO HOLDING PT AIRWAY. BENEDICT GARCIA AT BEDSIDE, BP MEDICATION GIVEN VIA IV SEE BLUE SHEET.
--- NOTE | 2019-01-22 16:44 | NUR ---
1640: PT RETURNED TO HER ROOM FROM PACU. VSS. PT DROWSY, RESONDS TO VOICE AND DENIES PAIN. ABD GAUZE AND TAPE DRESSING CDI. BARTLETT IN PLACE DRAINING CLEAR YELLOW URINE.
--- NOTE | 2019-01-22 17:13 | NUR ---
DR DALTON AND SANTOSH MCMULLEN BOTH CAME AND SPOKE WITH THE PT AND HER MOTHER ONCE THE PT WAS IN MED-SURG. SCD'S ON AND RUNNING, CPOX PLACED. PT CONTINUES TO DENIE PAIN AND REMAINS DROWSY.
--- NOTE | 2019-01-22 17:43 | NUR ---
Pt denies any pain or nausea.
--- NOTE | 2019-01-22 20:50 | NUR ---
MARKET RESEARCH ASSOCIATE ROUNDING NOTE. PT RESTING IN BED, PRIMARY RN ADMINISTERING MEDS AT BEDSIDE. PT DENIES QUESTIONS OR CONCERNS AT THIS TIME. CALL LIGHT IN REACH, WHITE BOARD UPDATED.
--- NOTE | 2019-01-22 21:04 | NUR ---
V/S AND I&O TAKEN AND CHARTED.
--- NOTE | 2019-01-22 22:12 | NUR ---
PATIENT'S PAIN IN THE ABD AND 12/04 AND GIVEN 10MG OXYCODONE. IN ROOM VISITING WITH PATIENT. CALL LIGHT IN REACH.
--- NOTE | 2019-01-22 23:03 | NUR ---
PATIENT STILL VISITING AND PAIN DOWN TO 6/10. GLASS OF SPRITE GIVEN.
--- NOTE | 2019-01-22 23:31 | NUR ---
PATIENT NAUSEATED AND GIVEN 25MG IV PHENERGAN GIVEN IN 20MLS NS. STILL IN ROOM. PAIN LEVEL STILL AT 6/10.
--- NOTE | 2019-01-23 00:19 | NUR ---
ANTIBIOTIC DONE, PATIENT CALLED PORT FLUSHED AND PATIENT GOING TO TRY TO GET SOME SLEEP. CALL LIGHT IN REACH.
--- NOTE | 2019-01-23 02:23 | NUR ---
WAS JUST IN PATIENT'S ROOM AND SHE SAID SHE HAD JUST WOKEN UP AND WAS PLAYING ON HER PHONE AND MENTIONED NOTHING ABOUT PAIN. NOW SHE JUST CALLED AND ASKED FOR PAIN MEDS. ON MY WAY DOWN TO SEE WHAT I CAN DO FOR HER.
--- NOTE | 2019-01-23 02:52 | NUR ---
PATIENT GIVEN 10MG OXYCODONE PO AND 4MG PO ZOFRAN AND SOME JELLO TO KEEP HER STOMACH SETTLED FOR ABD PAIN 12/04. CALL LIGHT IN REACH. NEW ICE WATER GIVEN. SCD'S IN PLACE. VS DONE.
--- NOTE | 2019-01-23 03:06 | NUR ---
CALLED CONSUELO IN THE LAB AND HE IS ON HIS WAY TO DO THE 3AM GENT. LEVEL.
--- NOTE | 2019-01-23 04:03 | NUR ---
PATIENT SAYS HER PAIN IS STILL INCREASING SO 6MG IV MS GIVEN AND DOOR LEFT WIDE OPEN SO PULSE OX CAN BE HEARD AND PATIENT TO CALL LIGHT IS IN HAND.
--- NOTE | 2019-01-23 05:46 | NUR ---
PATIENT RESTING QUIETLY NOW SUPINE, SATS 97% AND HR 85 PER PULSE OX. EYES CLOSED RESPIRATIONS EVEN AND REGULAR. DRESSING DRY AND INTACT TO THE ABD, WITH SCANT DRY DRAINAGE RIGHT IN THE MIDDLE. BARTLETT DRAINING WELL, IV'S BOTH WORKING WELL. PATIENT APPEARS COMFORTABLE AT THIS TIME.
--- NOTE | 2019-01-23 06:56 | NUR ---
PATIENT STILL HAVING 8/10 ABD PAIN AT THIS TIME, 6MG IV MS GIVEN AND REPORTED TO DAYSTONYA RN.
--- NOTE | 2019-01-23 07:34 | NUR ---
in room to assess pt. pt complains of abdominal pain, nausea, and headache. Reports having a difficult time getting pain and nausea under control last night.
--- NOTE | 2019-01-23 08:06 | CONS ---
[facility] [address] [place], [place] [address] Signed DATE OF CONSULTATION: 01/22/2019 CHIEF COMPLAINT: Pelvic pain. HISTORY OF PRESENT ILLNESS: Shelby is a 38-year-old female with a fairly complex past medical history. She underwent a laparoscopic hysterectomy for ongoing pain and bleeding on October 06, 2018. She seemed to come through that just fine. She has been sexually active with her since sometime in November. That seemed to be going fine. Overall, she is feeling better. About 4 days ago, she had an intercourse with her and then had some type of pain right afterwards and thinks she might have passed out in the bathroom. She ended up taking a day off work and finally went to see her fiber machine tender. The speculum had been inserted, but she was too tender for a bimanual exam. She tells me there has been some granulation tissue that was treated with silver nitrate previously. No obvious omentum or small bowel down in the vagina to suggest rupture of the vaginal cuff. She was sent directly from the office down to the emergency room. Transvaginal and transabdominal ultrasound did not show any obvious concerns. Both ovaries were fine. However, she got better for a day but then got much worse. She came back to the emergency room, where her white count was little elevated just over 12 and very tender in the lower abdomen. Urinalysis was not particularly concerning. Urine and blood cultures were sent and she was admitted to the Internal Medicine Service. CT scan of abdomen and pelvis had been performed. There seemed to be some inflammation in the pelvis and lower abdomen involving part of the rectum, a little bit of distal sigmoid colon, and some loops of small bowel. There is a small amount of free fluid. White count is a little better today at 10.7 having been on Cipro and Flagyl yesterday. Her sedimentation rate is up at 21. I have been asked to see her as a general surgeon on-call. 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 Gastroesophageal reflux disease, interstitial cystitis followed by Dr. Giovana Caceres with hydrodistention of her bladder with marked improvement. She has a history of irritable bowel syndrome including diarrhea. She talked about hypothyroidism and chronic right lower quadrant abdominal pain. PAST SURGICAL HISTORY: Laparoscopic partial hysterectomy involving the uterus and both fallopian tubes on October 06, 2018, with Dr. Shayy Becerra, a x1, appendectomy, and cholecystectomy. SOCIAL HISTORY: She has quit smoking. She quit drinking 2-1/2 months ago. She is to her at [phone]. Anamika Heath is her nurse practitioner. She prefers [facility]. She has one son, age 7. 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 It sounds to me like she is very busy. FAMILY HISTORY: Mom is obese. Dad is unremarkable. She is adopted, does not know anybody on family history. REVIEW OF SYSTEMS: Shelby had 10 systems reviewed and the above issues were noted. ALLERGIES: None. MEDICATIONS: Just [place] and Zofran in the last few days and then levothyroxine 175 mcg p.o. daily. PHYSICAL EXAMINATION: VITAL SIGNS: Blood pressure is 93/59, heart rate 86, respiratory rate 18, T-max is 101.7, she is 100% on room air. GENERAL: She is 5 feet 6 inches at 52 kg. Shelby is a 38-year-old female, who is lying supine in her hospital bed. Her mom is in the room. She is alert, awake, and interactive. She seems to be in some abdominal pain, but she does not appear systemically ill or toxic. LUNGS: Clear to auscultation bilaterally. HEART: Regular rate and rhythm. ABDOMEN: Generally soft and flat, but she seem to have exquisite tenderness even in the subxiphoid area. It is a little hard to remove that from some of her subjectiveness. Her abdomen is generally flat, although she feels like she is a little distended. LABORATORY DATA: Her white blood cell count is 10.7, hemoglobin 10.5, neutrophils 84. Electrolytes are unremarkable. Urinalysis showed a few white blood cells and red blood cells and some trace leukocyte esterase, but the bacteria is negative. Urine culture is pending. Blood cultures are pending. All her stool studies are pending. Her sedimentation rate is up at 21. Her C-reactive protein is pending. The stool calprotectin level is pending. Her albumin is good at 3.9. RADIOGRAPHIC STUDIES: I reviewed the ultrasound report from a few days ago and it was essentially unremarkable including the ovaries. The CT scan of abdomen and pelvis is reviewed and she does have inflammatory changes in the pelvis with no obvious free air. ASSESSMENT AND PLAN: Shelby is a 38-year-old female, who certainly has some pelvic inflammation following pain after intercourse 4-5 days ago. The etiology is not entirely clear. At this point, we Electronically Signed By: DARLENE CARRILLO MD 01/23/19 0806 PATIENT NAME: SHELBY NAVARRO CONSULTATION DATE OF : 78 REPORT #: [id number] PHYSICIAN: DARLENE CARRILLO MD PCP: ANAMIKA HEATH REPORT IS CONFIDENTIAL AND NOT TO BE RELEASED WITHOUT AUTHORIZATION [facility] [address] [place], [place] [address] Signed are going to continue the antibiotics and I am going to contact our radiologist to see if we can get any additional input. I have been asked to consider a colonoscopy, if not a limited colonoscopy, to look at the rectum and then sigmoid colon to see if there are inflammatory changes. Shelby has been to endoscopies previously and she is quite familiar with that whole process. She thinks she can handle a bowel prep so long as she has some pain medications. We will go ahead and give that a try today. I have reviewed this with the patient, her mother, Dr. Roberts, and Dr. Becerra. Darlene Carrillo MD ALB/MODL /[id number] cc: MD Darlene Rojas MD Dawn Headings, FNP Copies: SHAYY BECERRA MD, ANDREW L MD HEADINGS, DAWN FNP ~ Electronically Signed By: DARLENE CARRILLO MD 01/23/19 0806 PATIENT NAME: SHELBY NAVARRO LOYDA CONSULTATION DATE OF : 78 REPORT #: [id number] PHYSICIAN: DARLENE CARRILLO MD PCP: ANAMIKA HEATH REPORT IS CONFIDENTIAL AND NOT TO BE RELEASED WITHOUT AUTHORIZATION
--- NOTE | 2019-01-23 09:39 | OR ---
[facility] [address], [place] [address] Signed DATE OF OPERATION: 01/22/2019 SURGEON: Shayy Becerra MD GARAGE ATTENDANT: Dr. Kerr. 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 POSTOPERATIVE DIAGNOSES: Pelvic adhesions, cuff dehiscence. PROCEDURE: Laparoscopy, laparotomy, lysis of adhesions, re-closure of the cuff, cystoscopy. ANESTHESIA: General ET. ESTIMATED BLOOD LOSS: 25 mL. DRAINS: Berry catheter. INDICATIONS AND FINDINGS: The patient is a 38-year-old female, 2, para 1, SAB 1, who underwent total laparoscopic hysterectomy with bilateral salpingectomy for benign indications, approximately 14 weeks ago. She had done well postoperatively until this past week when on Thursday, she had acute pain following intercourse. She was evaluated in the emergency room at that time and was thought to have had a ruptured ovarian cyst. She subsequently felt much improved and was doing well on and early Thursday, but then had increasing pain which was more diffuse as well as a fever. She had some nausea and vomiting. She had not had a bowel movement since Thursday. She also had noted a large amount of clear fluid emanating from the vagina starting yesterday. She returned to the ER secondary to her increased pain. CT scan showed some inflammation in the pelvis, but normal ovaries. Her white count was slightly elevated at 10. She was febrile on her admission. Temperature was normal at the time of her consultation, however. Given her hx and findings, it was felt she possibly had a fistula of the bowel to the vaginal cuff Electronically Signed By: SHAYY BECERRA MD 01/23/19 0939 PATIENT NAME: YARELI NAVARRO OPERATIVE REPORT DATE OF : 78 REPORT #: [id number] PHYSICIAN: SHAYY BECERRA MD PCP: NINFA HEATH REPORT IS CONFIDENTIAL AND NOT TO BE RELEASED WITHOUT AUTHORIZATION [facility] [address], [place] [address] Signed and further evaluation was needed. She was consented and taken to the operating room. She underwent a laparoscopy, which showed dense adhesions of the bowel completely covering the vaginal cuff. After these were lysed during laparotomy, it was clear that she had a cuff dehiscence which was closed. DESCRIPTION OF PROCEDURE: The patient was prepped and draped in the dorsal lithotomy position. An open-sided speculum was placed and the cuff was visualized and it appeared raw, but there was no obvious opening or granulation tissue present. A sponge stick was placed in the vagina. A Berry catheter was also placed at this time. Attention was then directed to the abdomen. The infraumbilical incision was injected with 0.5% Marcaine plain and incision made with a knife. Each layer was then elevated and incised until the fascia was opened and identified and stay sutures placed. The peritoneum was opened bluntly. The Richard cannula was then placed. The balloon inflated. Placing the scope confirmed proper positioning. CO2 was then introduced. At this point, the adhesions of the bowel to the cuff were noted. It was felt these would not be easily lysed with laparoscopy and that laparotomy was necessary. Following this, the Richard was removed and the abdominal wall was incised in the midline with a knife. This was done by Dr. Kerr. After the abdomen was opened, the adhesions were bluntly divided with finger manipulation. There were adhesions of the bowel onto itself as well as onto the cuff. There was inflammatory material overlying the bowel as well. After the bowel was from the cuff, it was clear there was dehiscence of the cuff and the sponge stick in the vagina could be seen. Following this, the cuff was reclosed with a running suture of 0 Vicryl. It was then with some difficulty as the anterior vagina was fairly fragile but an effort was made to place sutures below the area of the fragility. After the cuff was closed and before the abdomen was closed, a cystoscopy was done. The Berry catheter was removed and the cystoscope was used using the 30-degree scope. The bladder was filled and there was no evidence of any injury to the bladder. Both ureteral orifices were identified. Following this, the bladder was drained and the Berry catheter replaced. At this point, Dr. Kerr concluded the operation. He irrigated the pelvis and abdomen with solution and closed the abdomen placing figure of 8's of #1 PDS on the fascia. The subq layer was reapproximated with 2-0 Monocryl. The skin was closed with mic. All sponge and needle counts were correct. She tolerated the procedure well and was taken to the recovery room in good condition. Shayy Becerra MD Electronically Signed By: SHAYY BECERRA MD 01/23/19 0939 PATIENT NAME: YARELI NAVARRO OPERATIVE REPORT DATE OF : 78 REPORT #: [id number] PHYSICIAN: SHAYY BECERRA MD PCP: NINFA HEATH CLASSIFIED ADVERTISING MANAGER REPORT IS CONFIDENTIAL AND NOT TO BE RELEASED WITHOUT AUTHORIZATION [facility] [address] [place], [place] [address] Signed RYAN/YASMIN /[id number] cc: Dr. Ran Roberts Copies: ~ Electronically Signed By: SHAYY BECERRA MD 01/23/19 0939 PATIENT NAME: YARELI NAVARRO OPERATIVE REPORT DATE OF : 78 REPORT #: [id number] PHYSICIAN: SHAYY BECERRA MD PCP: NINFA HEATH REPORT IS CONFIDENTIAL AND NOT TO BE RELEASED WITHOUT AUTHORIZATION
--- NOTE | 2019-01-23 09:41 | NUR ---
in room with pt to discuss plan of care. discussed pain control measures and removing catheter pt verbalized understanding.
--- NOTE | 2019-01-23 10:50 | NUR ---
In room to remove jiménez. pt tolerated procedure well. able to get pt out of bed and sitting in chair. pt moving very slowly but needed minimal assistance. Pt asking to get back in bed from chair. discussed with pt the need to be out of bed. pt still wanting to get back into bed. assisted pt to bed at this time. call light within reach and fresh water given
--- NOTE | 2019-01-23 12:01 | NUR ---
pt complaining of pain 7/10 in abdomen. gave 10mg oxycodone po.
--- NOTE | 2019-01-23 12:18 | NUR ---
pt resting in bed with eye's closed. respirations even and unlabored.
--- NOTE | 2019-01-23 13:58 | NUR ---
pt up to bathroom and back to bed. pt moving very slow. rating pain 7/10 with movement. re-enforced abdominal dressing. small amount of old drainage present.
--- NOTE | 2019-01-23 16:15 | NUR ---
pt complaining of abdominal pain 11/03. gave 10mg oxycodone po.
--- NOTE | 2019-01-23 17:00 | NUR ---
pt currently rating pain 5/10.
--- NOTE | 2019-01-23 17:26 | NUR ---
Pt has midline abdominal incision with dressing in place. old drainage present. difficulty with pain control at the start of shift. pt now getting oxycodone 10mg and tordal IV. better pain control this evening. pts jiménez removed. voiding quanity sufficiant. IV antibiotics. Regular diet.
--- NOTE | 2019-01-23 18:20 | NUR ---
pt up to bathroom for large loose BM.
--- NOTE | 2019-01-23 18:25 | NUR ---
pt up and ambulating in hallway. pt complained of pain in abdomen but stated, "it was okay." back in bed at this time.
--- NOTE | 2019-01-23 19:10 | NUR ---
BEDSIDE REPORT RECEIVED FROM OFFGOING RNEZRA. PT RESTING IN BED, PARTICPATES IN REPORT. DENIES NEEDS AT THIS TIME. CALL LIGHT IN REACH.
--- NOTE | 2019-01-23 20:46 | NUR ---
PT RESTING IN BED ON PHONE. SCHEDULED MEDCIATIONS ADMINISTERED. PT ASSESSMENT COMPLETE. PT RATES PAIN 7/10 TO ABD, PRN OXYCODONE X 2 TABS ADMINISTERED. PT DENIES NAUSEA OR SOB. LUNG SOUNDS WITH CRACKLES IN BILATERAL LOWER LOBES, CLEAR WITH COUGH. PT ENCOURAGED TO USE IS, PT AGREES, STATES THAT SHE HAS BEEN GETTING IT UP TO 2200. BT'S ACTIVE. AD TENDER TO PALPATION. DRESSING D/I WITH SMALL AMOUNT OF DARK RED SHADOWING ON LOWER ASPECT OF DRESSING. PT REPORTS FREQUENT TRIPS TO BATHROOM FOR SEMI LIQUID, SOMEWHAT GRANULATED STOOL. PLAN TO HOLD SCHEDULED SENNA. PT DENIES FURTHER NEEDS AT THIS TIME. MED ED PROVIDED, POC FOR THIS SHIFT DISCUSSED. PT STATES UNDERSTANDING. CALL LIGHT IN REACH.
--- NOTE | 2019-01-23 22:20 | NUR ---
SCHEDULED MEDICATIONS ADMINISTERED. PT RESTING IN BED, STATES THAT PAIN IS DOWN FROM PRN ADMINISTRATION, RATES 6/10. PT STATES THAT DIARRHEA HAS SLOWED DOWN FROM EARLY. JELLO PROVIDED PER REQUEST. DENIES FURTHER NEEDS. CALL LIGHT IN REACH.
--- NOTE | 2019-01-24 00:31 | NUR ---
PT RATING PAIN 7-810 TO ABD, REQUESTS PRN PAIN MEDICATION. OXYCODONE, 10MG, ADMINISTERED. PT DENIES FURTHER NEEDS AT THIS TIME. CALL LIGHT IN REACH.
--- NOTE | 2019-01-24 03:48 | NUR ---
PT RESTING IN BED AWAKE. PT RATES PAIN 8/10, SCHEDULED TORADOL ADMINISTERED. PT DENIES NAUSEA OR SOB. PT REPORTS THAT DIARRHEA HAS CEASED CURRENTLY. BT'S ACTIVE. ABD TENDER. NO DISTENSION NOTED UPON ASSESSMENT. DRESSING D/I WITH SMALL AMOUNT OF SHADOWING, UNCHAGED FROM PREVIOUS. PT ICE WATER REFILLED. PT DENIES FURTHER NEEDS AT THIS TIME. CALL LIGHT WITHIN REACH.
--- NOTE | 2019-01-24 05:19 | NUR ---
PT RESTING IN BED AWAKE, LAB AT BEDSIDE. SCHEDULED MEDICATION ADMINISTERED. PT DENIES NEEDS AT THIS TIME. CALL LIGHT IN REACH.
--- NOTE | 2019-01-24 05:34 | NUR ---
PT SLEPT WELL BETWEEN MEDICATION ADMINISTRATION. CONTINUES TO RATE PAIN BETWEEN 6 AND 8 THROUGHOUT THE NIGHT. PAIN MANAGED WELL WITH TORADOL AND OXYCODONE. NO REPORTS OF NASUEA OR PRN ANTIEMETIC ADMINISTRATION THIS SHIFT. ATE ~75% OF DINNER LAST EVENING, TOLERATED WELL. DRESSING TO ABD D/I, SHADOWING UNCHANGED THROUGHOUT THE NIGHT. BT'S ACTIVE. ABD TENDER. NO REPORTS OF LOOSE STOOL AFTER ~2100. ABX. SL. INDEPENDENT IN ROOM. UO QS.
--- NOTE | 2019-01-24 06:33 | NUR ---
FEEDER TENDER TO ROOM FOR SCHEDULED MED ADMINISTRATION. PT REPORTS DIARRHEA BOUTS AGAIN THIS AM. STATES THAT SHE IS GOING TO TRY TO ORDER BREAKFAST TO SEE IF IT WILL HELP HER STOMACH. PT WONDERS IF THIS COULD POSSIBLY BE C.DIFF DUE TO ANTIBIOTICS, STATES "I MAY END UP NEEDING A STOOL CULTURE". PT DENIES FURTHER NEEDS AT THIS TIME. CALL LIGHT IN REACH.
--- NOTE | 2019-01-24 08:30 | NUR ---
PT SITTING UP IN BED. REPORTS SHE IS UP FREQUENTLY INDEPENDENTLY TO RESTROOM FOR LOOSE STOOL. PT REPORTS 5/[address] DALTON REMOVED ABD DRESSING THIS AM. MIDLINE INCISION IS WELL APPROXIMATED, CAITLYN IN PLACE, NO REDNESS OR INFLAMMATION NOTED. ONLY OLD, DRIED DRAINAGE NOTED AT BOTTOM 1INCH OF INCISION. PT MARILYNN REG DIET. DENIES NAUSEA THIS AM. IV INFUSING WNL IN LEFT AC. PT MEDICATED WITH NEW SCHEDULED TYLENOL AND PRN OXY. PT AGREEABLE TO DECREASING FREQUENCY OF NARCOTICS PER DR. DALTON.
--- NOTE | 2019-01-24 11:10 | NUR ---
PT SITTING UP IN BED VISITING WITH FAMILY. INDEPENDENT IN ROOM. RATES PAIN 07/04. DENIES NEEDS OR CONCERNS AT THIS TIME. CALL LIGHT WITHIN REACH.
--- NOTE | 2019-01-24 13:08 | NUR ---
PT IN BED SLEEPING UPON THIS RN ENTERING ROOM. AWOKE EASILY TO VOICE. RATES SURGICAL PAIN 3/10 AT THIS TIME. MEDICATED WITH SCHEDULED MOTRIN. IV ABX STARTED. CALL LIGHT WITHIN REACH.
--- NOTE | 2019-01-24 13:33 | NUR ---
pt requesting prn oxy, reports pain 7/10. sitting up in bed making multiple phone calls and "working" as pt works from home. conversing easily, smiling, and laughing. medicated at this time. call light within reach.
--- NOTE | 2019-01-24 14:42 | NUR ---
PT HAD VISITOR, SEEMED VERY BUSY WITH THEM. EXTENDED A BLESSING,WILL FOLLOW NEEDED
--- NOTE | 2019-01-24 16:20 | NUR ---
PT APPEARS TO BE SLEEPING. EYES CLOSED, RESP EVEN AND UNLABORED.
--- NOTE | 2019-01-24 19:10 | NUR ---
PT SHOWERED INDEPENDENTLY. REPORTING 8/10 SURGICAL PAIN. MEDICATED WITH 10MG PRN OXY. SITTING UP IN BED DOWN WORKING ON EATING DINNER, MARILYNN WELL.
--- NOTE | 2019-01-24 19:20 | NUR ---
REPORT RECEIVED FROM OFFGOING RN, [place]. PT PARTICIPATES IN REPORT. DENIES NEEDS AT THSI TIME. CALL LIGHT IN REACH.
--- NOTE | 2019-01-24 19:24 | NUR ---
CHARGE NURSE REPORT RECEIVED FROM PETRA. PT IN ROOM, NO NEEDS AT THIS TIME.
--- NOTE | 2019-01-24 20:21 | NUR ---
PT ASSESSMENT COMPLETE. PT RATES PAIN 6/10 TO ABD. DENIES NAUSEA OR SOB. PT SITTING UP TALK TO HER FRIEND ON THE PHONE. BT'S ACTIVE, ABD TENDER TO PALPATION. MIDLINE INCISION WELL APPROXIMATED, CAITLYN. NO DRAINAGE NOTED. IV SITE FLUSHED, WNL. PT DENIES NEEDS AT THIS TIME. PLAN FOR PAIN MEDICATION DISCUSSED, WILL ATTEMPT FOR LONGER INTERVAL BETWEEN PAIN MEDICATION DOSEAGE. PT STATES AGREEMENT WITH PLAN. CALL LIGHT WITHIN REACHJ
--- NOTE | 2019-01-25 00:45 | NUR ---
SCHEDULED MEDCIATIONS ADMINISTERED. PT DOES NOT WAKE WHILE ASSOCIATE PROFESSOR OF ENGLISH IN ROOM, SNORING AUDIBLY. CALL LIGHT IN REACH.
--- NOTE | 2019-01-25 01:56 | NUR ---
WRTIER TO ROOM FOR SCHEDULED CARDIOLOGY PHYSICIAN. PT AWAKE. STATES THAT SHE IS "SORE" SHE IS WALKING OUT OF THE BATHROOM. RATES PAIN 8/10. PRN PAIN MEDS TO BE OFFERED. PAPER CARRIER ASKS PT IF SHE IS READY TO GO DOWN TO 5 MG OF OXYCODONE, SHE STATES "NOT YET". 10MG OF OXYCODONE ADMINISTERED. PT DENIES FURTHER NEEDS AT THIS TIME. CALL LIGHT IN REACH.
--- NOTE | 2019-01-25 04:49 | NUR ---
PT ASSESSMENT COMPLETE. PT RESTING WITH EYES CLOSED. FELIPE ROJAS ANODE CREW SUPERVISOR IN ROOM. PAIN 6/10, DENIES NAUSEA OR SOB. MIDLINE INCISION WELL APPROXIMATED, NO DRAINAGE NOTED. SMALL SCAB PRESENT TO LOWER ASPECT OF WOUND. BT'S ACTIVE. PT REPORTS ABD TENDERNESS. IV ABX INFUSING. PT TOLERATING WELL. PT DENIES FURTHER NEEDS. CALL LIGHT IN REACH.
--- NOTE | 2019-01-25 05:38 | NUR ---
PT SITTING UP IN BED, LAB AT BEDSIDE. SCHEDULED MEDS ADMINISTERED. PT CONTINUES TO RATE PAIN 10/04. PT STATES "MAYBE I"LL DO SOME WORK, [place] PROFILE SHAPER OPERATOR ENCOURAGES PT TO GET SOME SLEEP, PT AGREES. DENIES FURTHER NEEDS. CALL LIGHT IN REACH.
[2019-01-25] MEDS ORDERED: IBU800 MG PO (09:10)
[2019-01-25] MEDS ORDERED: ACETAMINOPHEN650 M1 PO (09:12)
[2019-01-25] MEDS ORDERED: PERCOCET 5-3251 EACH PO (09:13)
[2019-01-25] MEDS ORDERED: AUGMENTIN 875-1 EACH PO (09:14)
[2019-01-25] MEDS ORDERED: FLAGYL500 MG PO (09:15)
[2019-01-25] MEDS ORDERED: REGLAN10 MG PO (09:16)
[2019-01-25] MEDS ORDERED: OXYCODONE HCL5 MG PO (09:22)
--- NOTE | 2019-01-25 10:00 | NUR ---
PT DRESSED INDEPENDENTLY. AWAITING DC. DENIES NEEDS OR CONCERNS AT THIS TIME.
--- NOTE | 2019-01-25 13:35 | NUR ---
PT WAS PACKING UP, GETTING READY FOR DC. SHE SEEMED EXCITED, PHAR HAD BEEN IN AND WAS HELPFUL. WAITING ON FINAL DC INSTRUCTIONS FROM RN. EXTENDED BLESSING, WILL FOLLOW NEEDED
--- NOTE | 2019-01-25 16:25 | NUR ---
PT SITTING UP IN BED EATING BREAKFAST. MEDICATED WITH PRN OXY PER PT REQUEST 10/04 PAIN. DENIES NAUSEA. REPORTS CONT LOOSE STOOL WITH DECREASE IN FREQENCY. IV FLUSHES EASILY, DRESSING CDI. MIDLINE INCISION WELL APPROXIMATED, NO REDNESS, INFLAMMATION, OR DRAINAGE. DR. KRYSTLE PATEL ON PT.
== END 2019-01-25 10:45 | disposition home or self-care (01) | DRG 909 ==
LOC: ED 12:38 → MS 12:39
PROVIDERS: Colon & Rectal Surgery; ADMIT Obstetrics & Gynecology
PROC: 0UQG0ZZ Repair Vagina, Open Approach (ICD-10-PCS; principal; 2019-01-22 13:28)
PROC: 0UJH4ZZ Inspection of Vagina and Cul-de-sac, Percutaneous Endoscopic Approach (ICD-10-PCS; 2019-01-22 13:28)
DX: T81.32XA Disruption of internal operation (surgical) wound, not elsewhere classified, initial encounter (principal); N99.2 Postprocedural adhesions of vagina; K58.0 Irritable bowel syndrome with diarrhea; E03.9 Hypothyroidism, unspecified; K21.9 Gastro-esophageal reflux disease without esophagitis; G89.4 Chronic pain syndrome; E83.42 Hypomagnesemia; D64.9 Anemia, unspecified; E87.6 Hypokalemia; R19.7 Diarrhea, unspecified; Z87.891 Personal history of nicotine dependence; Z90.710 Acquired absence of both cervix and uterus; Z79.891 Long term (current) use of opiate analgesic; Z79.899 Other long term (current) drug therapy; Z53.31 Laparoscopic surgical procedure converted to open procedure
CPT/HCPCS: 00840; 36415; 74177; 80048; 80053; 80170; 81001; 83735; 84439; 84443; 85025; 85651; 86140; 87077; 87088; 87186; 87493; 90688; 94762; 96361; 96375; 96376; 99285-25; G0378; J0290; J0694; J0744; J1100; J1170; J1580; J1644; J1885; J2250; J2270; J2405; J2550; J2704; J2765; J3010; J3475; J3490; J7030; J7060; J7120; Q9967

== ENCOUNTER 2020-10-01 22:38 | Emergency (ER) | payer OTHER ==
[~2020-10-01] VITALS: Ht 165.1 cm; Wt 49.0 kg
[~2020-10-01 22:38] MED LIST changes: +ACETAMINOPHEN650 M1 PO; +AUGMENTIN 875-1 EACH PO; +FLAGYL500 MG PO; +IBU800 MG PO; +OXYCODONE HCL5 MG PO; +PERCOCET 5-3251 EACH PO; +REGLAN10 MG PO; +ZOFRAN4 MG PO
--- OUTSIDE RECORDS SUMMARY | 2020-10-01 22:40 | XMS ---
PreManage Notification: YARELI NAVARRO Security Retail Customer Service Representative Events No recent Security Events currently on file CRITERIA MET - PDMP CARE PROVIDERS Anamika BonillaP Nurse Practitioner: 07/02/2018-Current PHONE: [phone] Molly Rogers Nurse Practitioner: [facility] PHONE: [phone] Susy has no Care Guidelines for this patient. Kristel VISIT COUNT (12 MO.) 1 [facility] TOTAL 1 NOTE: Visits indicate total known visits. ED/UCC VISIT TRACKING (12 MO.) 10/01/2020 22:[address] [facility] [place] TYPE: Emergency COMPLAINT: - MEDICAL CLEARANCE INPATIENT VISIT TRACKING (12 MO.) No inpatient visits to display in this time frame [email or web address]
[2020-10-01] MEDS ORDERED: DIAZEPAM2 MG PO (23:03)
== END 2020-10-02 10:16 | disposition home or self-care (01) ==
LOC: ED 22:38
DX: F10.129 Alcohol abuse with intoxication, unspecified (principal); Y90.8 Blood alcohol level of 240 mg/100 ml or more; F32.9 Major depressive disorder, single episode, unspecified; R45.851 Suicidal ideations; Z20.822 Contact with and (suspected) exposure to COVID-19; K21.9 Gastro-esophageal reflux disease without esophagitis; Z87.891 Personal history of nicotine dependence; Z79.899 Other long term (current) drug therapy
CPT/HCPCS: 80053; 80176; 81001; 84443; 84703; 85025; 87077; 87088; 87186; 99285; A9270; C9803

== ENCOUNTER 2020-10-16 14:52 | Emergency (ER) | payer OTHER ==
[~2020-10-16] VITALS: Ht 165.1 cm; Wt 49.9 kg
[~2020-10-16 14:52] MED LIST changes: +DIAZEPAM2 MG PO
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
== END 2020-10-16 17:53 | disposition short-term general hospital (02) ==
LOC: ED 14:52
DX: S12.101A Unspecified nondisplaced fracture of second cervical vertebra, initial encounter for closed fracture (principal); S12.500A Unspecified displaced fracture of sixth cervical vertebra, initial encounter for closed fracture; S12.600A Unspecified displaced fracture of seventh cervical vertebra, initial encounter for closed fracture; F10.129 Alcohol abuse with intoxication, unspecified; V49.9XXA Car occupant (driver) (passenger) injured in unspecified traffic accident, initial encounter; Z20.822 Contact with and (suspected) exposure to COVID-19; K21.9 Gastro-esophageal reflux disease without esophagitis; Z87.891 Personal history of nicotine dependence; Z79.899 Other long term (current) drug therapy
CPT/HCPCS: 70450; 71260; 72125; 74177; 80053; 82150; 82550; 83605; 83690; 85025; 90471; 90715; 96375; 96376; 99285-25; C9803; J1170; J2405; Q9967; U0003

== ENCOUNTER 2021-09-01 15:41 | Emergency (ER) | payer OTHER ==
[~2021-09-01] VITALS: Ht 165.1 cm; Wt 49.9 kg
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
== END 2021-09-02 09:13 | disposition home or self-care (01) ==
LOC: ED 15:41
DX: S51.812A Laceration without foreign body of left forearm, initial encounter (principal); F10.129 Alcohol abuse with intoxication, unspecified; Y90.8 Blood alcohol level of 240 mg/100 ml or more; X78.1XXA Intentional self-harm by knife, initial encounter; K21.9 Gastro-esophageal reflux disease without esophagitis; Z79.899 Other long term (current) drug therapy
CPT/HCPCS: 36415; 80053; 81001; 84443; 84703; 85025; 99285; A9270; G0480

== ENCOUNTER 2021-10-01 18:34 | Inpatient (IN) | payer OTHER ==
[~2021-10-01] VITALS: Ht 165.1 cm; Wt 54.0 kg
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
[2021-10-01] MEDS ORDERED: NEURONTIN300 MG PO (18:45)
[2021-10-01] MEDS ORDERED: ONDANSETRON ODT4 MG SL (18:46)
--- NOTE | 2021-10-02 01:55 | NUR ---
PT ARRIVED TO THE CCU AT 0042 AWAKE AND ALERT ON ROOM AIR, IVF INFUSING. PT ABLE TO STAND AND PIVOT FROM THE ER STRETCHER TO THE CCU BED. VITALS TAKEN AFTERWARDS. PT ALERT AND ORIENTED X4 AND REPORTED 8/10 PAIN AROUND HER BODY. PT REQUESTED PRN PAIN MEDICATION. PRN MORPHINE 4MG ADMINISTERED ALONG WITH SCHEDULED PROTONIX AND IV ANTIBIOTICS. ANTIBIOTICS NOW INFUSING AT ORDERED RATES (SEE MAR). PO VANCOMYCIN ALSO ADMINISTERED (SEE MAR). SHORTLY AFTER ADMINISTRATION OF MEDICATIONS PT VOMITTED CLEAR/WATERY EMESIS WITH SMALL DARK TRACES. PO MEDICATION NOTED TO NO BE IN EMESIS CONTENTS. AFTERWARDS ASSESSMENT AND HISTORY WAS COMPLETED. PT ALERT, ORIENTED X4, FOLLOWS DIRECTIONS, HEART RATE TACHYCARDIC, LUNGS CLEAR, PT DENIES SHORTNESS OF BREATH. ABOMEN SOFT, PT REPORTS PAIN WHEN PALPATING, BOWEL TONES HYPOACTIVE. PULSES STRONG, PT DENIES NUMBNESS OR TINGLING TO EXTREMITIES. TREMORS FELT IN HANDS WHILE ASSESSING PT. CIWA 5 FROM MODERATE NAUSEA AND VOMITTING AND NONVISIBLE TREMORS. PT REPORTS NO FURTHER NEEDS AT THIS TIME BUT REPORTS NAUSEA, WILL CONTINUE PLAN OF CARE AND CHANGE IVF TO ORDERED D5LR +40K AND ADMINISTER PRN NAUSEA MEDICATION. CALL LIGHT IN REACH, BED IN LOWEST POSITION. PT REMAINS IN BED AWAKE AND ALERT. IV ABX INFUSING.
--- NOTE | 2021-10-02 02:26 | NUR ---
IN TO GIVE NAUSEA MEDICATION. pt VOMITTING INTO THE GARBAGE CAN. HR INCREASED TO 140'S WHILE VOMITTING. APPROX 1000 ML EMESIS EMPTIED. NAUSEA MEDICATION ADMINISTERED. pt REQUESTED ALCOHOL SWAB TO SNIFF "IT TAKES MY NAUSEA AWAY INSTANTLY" PROVIDED. NEW IV STARTED IN RIGHT UPPER ARM. IV FLUIDS INFUSING. NO FURTHER REQUESTS AT THIS TIME. CALL LIGHT WITHIN REACH.
--- NOTE | 2021-10-02 02:30 | NUR ---
PT RESTING IN BED AT THIS TIME AWAKE AND ALERT. IV ABX COMPLETED, PT SALINE LOCKED. D5LR + 20K REMAINS INFUSING AT ORDERED RATE. PT REPORTS NO NEEDS AT THIS TIME, WILL CONTINUE PLAN OF CARE. CALL LIGHT IN REACH.
--- NOTE | 2021-10-02 04:25 | NUR ---
PT'S HR NOTED TO INCREASE TO THE 130'S. PT SITTING AT THE SIDE OF THE BED VOMITTING INTO GARBAGE BIN. EMESIS NOTED TO BE CLEAR. PRN PHENERGAN ADMINISTERED FOR NAUSEA/VOMITTING (SEE MAR). AFTERWARDS PT REPORTS SHE ALSO HAD ABDOMINAL PAIN 12/04. PRN OXYCODONE ADMINISTERED (SEE JUN). VS THEN TAKEN AND ASSESSMENT COMPLETED. LUNGS CLEAR, BOWEL TONES REMAIN HYPOACTIVE, ABDOMEN SOFT, PT DENIES PAIN WHEN ABDOMEN WAS PALPATED. PULSES STRONG. PT DENIES THE NEED TO VOID AT THIS TIME. ICE WATER PROVIDED, PT REPORTS NO FURTHER NEEDS WHEN ASKED AND REMAINS RESTING IN BED. CALL LIGHT IN REACH, BED IN LOWEST POSITION, IVF INFUSING ORDERED, WILL CONTINUE PLAN OF CARE.
--- NOTE | 2021-10-02 06:06 | NUR ---
PT LAYING IN BED SLEEPING, IVF INFUSING. PT AWOKE EASILY AT HTIS TIME AND REPORTED NAUSEA HAD SUBSIDED WITH THE PRN PHENERGAN. PT REPORTED 8/10 ABDOMINAL PAIN AND REQUESTED PRN MEDICATION. SCHEDULED IV ABX STARTED AND INFUSING (SEE JUN), SCHEDULED PO MEDICATION ADMINISTERED, AND PRN MORPHINE ADMINISTERED (SEE JUN). PT ABLE TO GET UP TO THE BEDSIDE COMMODE TO VOID, HR NOTED TO INCRESE FROM THE 100'S TO THE 140'S, PT GAIT NOTED TO BE WEAK, PT ASSISTED, TO PIVOT TO THE BEDSIDE COMMODE. PT DENIED LIGHTHEADEDNESS WHEN ASKED. PT REPORTS NO FURTHER NEEDS AFTERWARDS AND IS NOW RESTING IN BED. CALL LIGHT IN REACH, WILL CONTINUE PLAN OF CARE.
--- NOTE | 2021-10-02 06:40 | NUR ---
PT IV ABX COMPLETED, PT IV SALINE LOCKED. PT REMAINS RESTING IN BED IVF INFUSING. IVF MOMENTARILY PAUSED TO DRAW BLOOD FROM IV FOR LABS. DRAW SENT TO LAB, PT IVF NOW INFUSING ORDERED. PT REPORTS NO FURTHER NEEDS AND DENIES HAVING ANY NAUSEA AT THIS TIME WHEN ASKED. CALL LIGHT IN REACH, BED IN LOWEST POSITION.
--- NOTE | 2021-10-02 07:47 | NUR ---
PATIENT RESTING IN BED, WOKE TO VOICE. VITALS CHARTED. CALL LIGHT IN REACH, ROOM TIDIED. NO OTHER NEEDS AT THIS TIME
--- NOTE | 2021-10-02 08:11 | NUR ---
IN PATIENT'S ROOM FOR ASSESSMENT. PT SITTING UP AT EDGE OF BED AND VOMITING INTO GARBAGE CAN. PT STATES SHE IS ONLY TAKING SMALL SIPS OF LIQUIDS ANS STILL VOMITING. ENCOURAGED PATIENT TO STOP TAKING ANYTHING BY MOUTH UNTIL NAUSEA IMPROVES. PRN ZOFRAN GIVEN. PROTONIX ALSO GIVEN, WELL PRN MORPHINE FOR 8/10 PAIN. PT UNABLE TO KEEP PILLS DOWN AT THIS TIME. HR IN THE 100s WHEN RESTING, BUT UP TO 150s WITH VOMITING. PAIN IS 8/10 IN CENTRAL ABDOMEN. ACTIVE BOWEL SOUNDS HEARD. PT STATES SHE HASN'T HAD ANY DIARRHEA IN ABOUT 6 HRS. STOOL SAMPLE NEEDED. IVF CONTINUE AT 125 ML/HR. PT REMAISN ON ROOM AIR AND SP02 IS 95%. LUNGS ARE CLEAR. PLAN OF CARE DISCUSSED. CONTINUE TO MONITOR.
--- NOTE | 2021-10-02 08:53 | NUR ---
PATIENT NAUESOUS AGAIN AND VOMITING. PRN COMPAZINE GIVEN. THIS IS ABOUT THE 3-4TH TIME THIS AM SHE HAS VOMITIED. HR IN THE 120s SITTIGN ON EDGE OF BED.
--- NOTE | 2021-10-02 09:15 | NUR ---
DR STEVE OFFICE CONTACTED FOR MEDICAL RECORDS.
--- NOTE | 2021-10-02 10:19 | NUR ---
PATIENT RESTING AT THIS TIME AND HR IS AROUND 105. WHEN ASKING PATIENT HOW SHE IS DOING, SHE STATES, "I'M DOING OKAY." WILL CONTINUE TO MONITOR.
--- NOTE | 2021-10-02 11:24 | NUR ---
DR. PHIPPS IN ROOM TO SEE PATIENT AT THIS TIME. PATIENT STILL HAVING NAUSEA AND VOMITING. PRN PHENERGAN INFUSING SLOWLY ON THE PUMP OVER 8 MINUTES, 12.5 MG. SEE EMAR. PT STILL RECEIVING IV FLUIDS AT 125 ML/HR.
--- NOTE | 2021-10-02 14:53 | NUR ---
PATIENT CONTINUES TO REST AND HASN'T VOMITED SINCE EARLIER TODAY WHEN DR. PHIPPS WAS ROUNDING ON PATIENT. PRN MORPHINE GIVEN FOR ABDOMINAL PAIN. IVF CONTINUE. LR BOLUS HAS FINISHED. PT UP TO VOID CONCENTRATED URINE IN BSC. LABS TO BE DRAWN AT 1700. NO STOOL TODAY THUS FAR BUT WE DO NEED A STOOL SAMPLE WHEN SHE CAN GO. PT AWRAE. HR IN THE 110s WHILE RESTIGN AT THIS TIME,B UT WHEN SHE WAS SLEEPING EARLIER, HR WAS DOWN TO 95.
--- NOTE | 2021-10-02 16:39 | NUR ---
PATIENT SLEEPING AT THIS TIME. BLOOD DRAW DUE AT 1700. ASSESSMENT DEFFERED UNTIL PATIETN AWAKENS. HR 99 AT THIS TIME. IVF CONTINUE. PT STILL HASN'T VOMITIED SINCE AROUND 1100 THIS AM. WILL CONTINUE TO MONITOR.
--- NOTE | 2021-10-02 19:25 | NUR ---
REPORT RECIEVED FROM VAMSI RN, PT RESTING IN BED AT THIS TIME ON ROOM AIR, IVF INFUSING AT ORDERED RATE. PT PROVIDED WITH ICE WATER AT THIS TIME AND REPORTS NO FURTHER NEEDS. PT REMAINS RESTING IN BED, CALL LIGHT IN REACH, WILL CONTINUE PLAN OF CARE.
--- NOTE | 2021-10-02 21:40 | NUR ---
PT LAYING IN BED AWAKE AND ALERT, IVF INFUSING. PT REPORTS NAUSEA AND ABDOMINAL PAIN/NECK PAIN 11/03. PT REQUESTED PRN PAIN MEDICATION AND PRN N&V MEDICATION. PRN MORPHINE ADMINISTERED, PRN ZOFRAN ADMINISTERED AND SCHEDULED MEDICATIONS ADMINISTERED (SEE JUN). IV ABX NOW INFUSING WELL (SEE JUN). VITALS TAKEN AFTERWARDS AND ASSESSMENT COMPLETED. PT ALERT AND ORIENTED X4, HEART RYTHM TACHYCARDIC BUT REGULAR, LUNGS CLEAR, ACTIVE BOWEL TONES, ABDOMEN SOFT, PULSES STRONG, CAPILLARY REFILL BRISK, PT DENIES NUMBNESS OR TINGLING TO EXTREMITIES. VISIBLE TREMORS NOTED IN PT'S HAND WHEN OUTSTRETCHED AND WHEN PT TOOK HER PO MEDICATIONS. PT NOW RESTING IN BED AND REPORTS NO FURTHER NEEDS, ICE WATER PROVIDED. IVF AND IV ABX INFUSING ORDERED. PT PLACED ON 2L O2 NC SPO2 BEGIN TO DECREASE AND MAINTAIN AT 88-90%, PT DENIES SHORTNESS OF BREATHE. PT REPORTS NO FURTHER NEEDS, WILL CONTINUE PLAN OF CARE. CALL LIGHT IN REACH, BED IN LOWEST POSITION.
--- NOTE | 2021-10-02 22:55 | NUR ---
IV ABX COMPLETED, PT SALINE LOCKED. IVF STILL INFUSING AT ORDERED RATE. PT DENIES SHORTNESS OF BREATH AND REMAINS ON 2L O2 NC. PT REPORTS NO FURTHER NEEDS AND DENIES THE NEED FOR NAUSEA OR PAIN MEDICATION AT THIS TIME. WILL CONTINUE PLAN OF CARE. CALL LIGHT IN REACH.
--- NOTE | 2021-10-03 00:15 | NUR ---
HR NOTED TO INCREASE TO 130 ON MONITOR, PT CHECKED ON. PT LAYING IN BED AWAKE AND ALERT, IVF INFUSING, PT ON 2L O2 NC, SPO2 98%. PT REPORTS NAUSEA AND ABDOMINAL PAIN 11/03. PT REQUESTED PRN PAIN MEDICATION AND NAUSEA MEDICATION. PRN COMPAZINE AND PRN OXYCODONE ADMINISTERED (SEE MAR). VITALS THEN TAKEN AND PT ASSESSED (SEE CHART). PT REPORTS NO FURTHER NEEDS AT THIS TIME AND REMAINS RESTING IN BED. CALL LIGHT IN REACH, WILL CONTINUE PLAN OF CARE.
--- NOTE | 2021-10-03 02:06 | NUR ---
PT CALLED, IV ALARMING, NEW BAG NOW INFUSING. EYES CLOSED, RESP ISAAC AND UNLABORED WHEN THIS RN LEFT ROOM.
--- NOTE | 2021-10-03 02:10 | NUR ---
IV PUMP ALARMING, PT LAYING IN BED RESTING ON 2L O2 NC. IV SITE WNL, IVF RESTARTED AND INFUSING AT ORDERED RATE. PT PLACED ON ROOM AIR, SPO2 MAINTAINING AT 92-94%. PT LEFT ON ROOM AIR AT THIS TIME, PT DENIES SHORTNESS OF BREATH. PT REPORTS NO FURTHER NEEDS AT THIS TIME, WILL CONTINUE PLAN OF CARE. CALL LIGHT IN REACH, BED IN LOWEST POSITION.
--- NOTE | 2021-10-03 04:53 | NUR ---
PT LAYING IN BED AWAKE AND ALERT AT THIS TIME. IVF INFUSING ORDERED. PT ON ROOM AIR, VITALS TAKEN AND ASSESSMENT COMPLETED (SEE CHART). PT ALERT AND ORIENTED X4. PT HEART RATE REMAINS TACHYCARDIC. LUNGS REMAIN CLEAR, ABDOMEN REMAINS SOFT, TENDER WHEN PALPATED IN MID UPPER ABDOMEN, ACTIVE BOWEL TONES PRESENT. [place] [facility] [place], HR NOTED TO INCREASE TO THE 1140-150'S WHILE SITTING UP. PT DENIES LIGHTHEADEDNESS BUT STATE SHE FEELS IF SHE HAS AN OCCASIONAL "JOLT/SHOCK" THAT WAKES HER UP ON OCCASION. PT REPORTS NAUSEA AND NECK/BACK, AND ABDOMINAL PAIN AT THIS TIME AND REQUESTED PRN MORHPINE AND NAUSEA MEDICATION. PRN MORPHINE AND ZOFRAN ADMINISTERED (SEE MAR). PT PROVIDED WITH ICE WATER AND A SODA PER HER REQUEST. PT NOTED TO NOT HAVE HAD ANY EMESIS THROUGHOUT THE NIGHT. PT REMAINS RESTING IN BED NOW, IVF INFUSING ORDERED. CALL LIGHT IN REACH, BED IN LOWEST POSITION.
--- NOTE | 2021-10-03 05:50 | NUR ---
DR. PHIPPS UPDATED ON PT'S URINE OUTPUT, TACHYCARDIA WHEN PT EXERTS HERSELF, AND VITALS. WILL CONTINUE PLAN OF CARE.
--- NOTE | 2021-10-03 06:08 | NUR ---
PT SLEEPING AT THIS TIME, IVF INFUSING, PT ON ROOM AIR, SPO2 92-94%. PT AWOKE EASILY AT THIS TIME. SCHEDULED MEDICATIONS ADMINISTERED (SEE MAR). PT REPORTS NO NEEDS AFTERWARDS AND REMAINS RESTING IN BED. WILL CONTINUE PLAN OF CARE. CALL LIGHT IN REACH. IV ABX AND IVF INFUSING.
--- NOTE | 2021-10-03 07:02 | NUR ---
IV ABX COMPLETED, PT IV SALINE LOCKED. PT RESTING IN BED AWAKE AND ALERT, IVF INFUSING. PT REPORTS NO NEEDS AT THIS TIME, CALL LIGHT IN REACH.
--- NOTE | 2021-10-03 08:00 | NUR ---
REPORT RECEIVED FROM HELP DESK SUPPORT SPECIALIST RN. PT TOLERATING IVF ORDERED. LYING IN BED WITH HER EYES CLOSED. APPEARS COMFORTABLE. CALL LIGHT WITHIN REACH. VSS. WILL CONT TO MONITOR.
--- NOTE | 2021-10-03 08:30 | NUR ---
INTO PATIENT ROOM, PATIENT AWAKE WATCHING TV. CASE MANAGEMENT ASSESSMENT COMPLETE. PATIENT STATES SHE LIVES AT HOME WITH HER YOUNG SON. PATIENT PLANS TO DISCHARGE TO HER MOTHER KILEY HOOKER HOME FOR A FEW WEEKS WHILE SHE RECOVER. PATIENT REQUIRES NO DME AT THIS TIME. PATIENT STATES SHE GETS FOOD STAMPS AND DOES NOT FEEL THAT SHE HAS ANY OTHER FINANCIAL NEEDS AT THIS TIME. DEMOGRAPHIC INFORMATION CONFIRMED. NO FURTHER NEEDS OR QUESTIONS FROM THE PATIENT AT THIS TIME.
--- NOTE | 2021-10-03 10:00 | NUR ---
PRN PAIN MEDICATION ADMINISTERED ORDERED THIS AM- SEE EMAR FOR ADMINISTRATION INFORMATION. IVs PATENT. PT VERBALIZES NEEDS APPROPRIATELY. VSS. PT RESTING IN BED WITH HER EYES CLOSED AND APPEARS COMFORTABLE. UPDATE PROVIDED TO PT'S MOTHER. CALL LIGHT WITHIN REACH. WILL CONT TO MONITOR.
--- NOTE | 2021-10-03 12:27 | NUR ---
PT ARRIVES TO MS FLOOR FROM CCU VIA BED. VS WNL, IV SITE TOLERATING INFUSION WIHTOUT DIFFICULTY. PT RATES pain 8/10 - GI COCKTAIL PROVIDED. CALL LIGHT IN REACH.
--- NOTE | 2021-10-03 12:40 | NUR ---
PT REPORT PROVIDED TO M/S RNLAVELL. TELE D/Cd. NEW ORDERS RECEIVED. PT MADE AWARE OF CHANGES. PRN ZOFRAN ADMINISTERED FOR NAUSEA. VSS. CALL LIGHT WTIHIN REACH.
--- NOTE | 2021-10-03 15:55 | NUR ---
RN IN ROOM TO ROUND ON PT. PT UP TO BATHROOM INDEPENDENTLY WITHOUT DIFFICULTY. 2 LIQUID BMS NOTED BY PT, YELLOW AND BILE WITHOUT BLOOD. PT STATES PAIN IMPROVED AND IS NOW HUNGRY.
[2021-10-03] MEDS ORDERED: HYDROCODON-ACE1 EAC8 PO (16:13)
--- NOTE | 2021-10-03 17:07 | NUR ---
RN IN ROOM TO PROVIDE TOOTHBRUSH AND SUCH FOR ORAL HYGIENE. PT DENIES FURTHER NEEDS, STATES SHE FEELS IMPROVED.
--- NOTE | 2021-10-03 19:10 | NUR ---
PT CALL LIGHT ON. PT REPORTS "MY IV IS BLEEDING EVERYWHERE." THIS RN TO ROOM. IV FLUIDS INFUSING THROUGH RIGHT WRIST IV SITE, SMALL AMOUNT OF LEAKING NOTED, WORSE WITH FLUSHING. IV DC'D PER PROTOCOL. GAUZE AND COBAN APPLIED. PT INSTRUCTED TO REMOVE COBAN AFTER 20-30 MINUTES. IV TO RIGHT UPPER ARM ASSESSED, WNL, NO S/S OF PHLEBITIS NOTED. IV FLUIDS RESTARTED TO RIGHT UPPER ARM IV SITE. PT DENIES ADDITIONAL REQUSTS OR COMPLAINTS. CALL LIGHT WIHTIN REACH. BED RAILS UP. PTS PRIMARY RN UPDATED.
--- NOTE | 2021-10-03 20:21 | NUR ---
ALERT AND ORIENTED. STATES SHE IS NAUSEATED, SEE EMAR. ALSO STATES PAIN IN ABDOMEN IN 01/04 AT THIS TIME, REFUSES ANY ANALGESIC. FEELS ONCE NAUSEA IS CONTROLLED, SHE WILL FEEL BETTER. CALL LIGHT IN REACH, BED RAILS UP X2. ASSESSMENT COMPLETED.
--- NOTE | 2021-10-04 04:57 | NUR ---
Slept intermittently through the night. Antiemetic administered twice during the night. Analgesic administered once, pain decreased. Continues on IV fluids. Stool X2, specimen sent to lab. Remains on room air.
--- NOTE | 2021-10-04 07:25 | NUR ---
REPORT RECEIVED FROM NIGHT RN - CARE PLAN REVIEWED.
--- NOTE | 2021-10-04 08:42 | NUR ---
RECVD CALL FROM PATIENT MOTHER MARTÍN MCCULLOUGH REQUESTING CASE MANAGEMENT CONTACT INFORMATION. MARTÍN STATES THAT THE PATIENT HAS BEEN RECEIVING OUTPATIENT TREATMENT THROUGH THE [facility]. MARTÍN STATES THAT THE PATIENTS ADMISSION SHOP MANAGER IS STATING THAT THE PATIENT IS BEING DISCHARGED FROM THE OUTPATIENT PROGRAM. MARTÍN STATES THAT THE TREATMENT FACILITY WOULD LIKE THE PATIENT TO RECEIVE INPATIENT TREATMENT AND WOULD LIKE A REFERRAL TO THE CLINIC. CONTACT INFORMATION GIVEN TO MARTÍN TO PASS ALONG TO [facility].
--- NOTE | 2021-10-04 09:07 | NUR ---
RN IN ROOM TO ADMINISTER SCHEDULED MEDICATIONS. PT FOUND TO BE QUITE UNWELL UPON ENTERING. STATES HER "ENTIRE BODY" HURTS AND SHE IS "EXTREMELY NAUSEA" AFTER ATTEMPTING EAT BREAKFAST TRAY. PRN ANTIEMETIC PROVIDED IV, GI COCKTAIL TO FOLLOW FOR EPIGASTRIC PAIN. PT SITTING UP IN BED DRY HEAVING. STATES SHE HAS HAD LOOSE STOOL SEVERAL TIMES THIS MORNING - NO BLOOD NOTED. ENCOURAGED PT TO TRY GI COCKTAIL RATHER THAN NORCO SINCE GASTRITIS SYMPTOMS HAVE RETURNED AND WORSENED SINCE RESTARTING IT. PT RELUCTANT BUT AGREES. ASSESSMENT COMPLETE.
--- NOTE | 2021-10-04 10:37 | NUR ---
RN IN ROOM TO ADDRESS IV MACHINE ALARM - LOW BATTERY. REPLACED IV FLUID BAG, IV SITE INFUSING WITHOUT DIFFICULTY. PT RESTING IN BED, HOPEFULL TO GET SOME SLEEP. CALL LIGHT IN REACH.
--- NOTE | 2021-10-04 10:43 | NUR ---
PT CALL LIGHT ON. PT REPORTS HER IV IS LEAKING. IV DRESSING WET. DRESSING REMOVED. CONNECTION POINT LOOSE, LUER LOCK CONNECTION TIGHTENED. LINE FLUSHED WITH 10ML NS AND NO LEAKING NOTED. DRESSING CHANGED PER PROTOCOL. INFUSION RESTARTED. PT DENIES ADDITIONAL REQUESTS OR COMPLAINTS. PTS PRIMARY RN UPDATED. BED RAILS UP. CALL LIGHT STIVEN [place].
--- NOTE | 2021-10-04 11:32 | NUR ---
RN IN ROOM TO ADMINISTER SCHEDULED MEDICATIONS. PT STATES PAIN AND NAUSEA ARE NOT IMPROVED. ENCOURAGED PT TO APPROACH LUNCH TRAY WITH CAUTION IF STILL NAUSEATED. PT ASKES FOR IV PAIN MEDICATION TO BE RESUMED - WILL DISCUSS WITH MD. CALL LIGHT IN REACH.
--- NOTE | 2021-10-04 12:07 | NUR ---
RN IN ROOM TO ADMINSITER PRN PAIN MEDS FOR 8/10 PAIN IN ABD AND HEAD. PRN NORCO PROVIDED. PT REQUESTS BSC BM HAVE INCREASED IN FREQUENCY AND URGENCY.
--- NOTE | 2021-10-04 14:44 | NUR ---
RN IN ROOM TO ADMINISTER SCHEDULED MEDICAITONS. IV SITE LEAKING AND NO LONGER USABLE, DC'D. NEW IV SITE STARTED BY DILLAN, HOE WORKER IN LEFT FOREARM. NEW FLUID ORDER STARTED. PT REQUESTS PRN ZOFRAN FOR NASUEA AND "PAIN MEDS WHEN I CAN HAVE THEM". PT ALSO REQUESTS NICOTINE PATCH SHE SMOKES AT HOME. MD NOTIFIED AND ORDERED. PT CONTINUING TO HAVE LOOSE STOOL IN BSC. PT STATES SHE WANTS A HAM SAMWICH HOWEVER, STATES SHE THINK THE LIQUIDS ARE CAUSEING THE LOOSE STOOL. CURRENT DIET ORDER CLEAR LIQUIDS, WILL FOLLOW UP WITH MD.
--- NOTE | 2021-10-04 15:50 | NUR ---
MEDICATIONS DUE. THIS RN TO ROOM TO CHECK ON PT. PT REPORTS ONGOING 8/10 PAIN "IN MY NECK." PT VERBALIZES THAT "MY NEXT PAIN MEDICATION ISN'T UNTIL LATER." PT DENIES NEED FOR ADDITOINAL PAIN MEDICAITON. HEAT AND ICE PACK OFFERED. PT AGREES TO TRY A HEAT PACK, PROVIDED. . MEDICATION GIVEN. PT RESTING IN BED. DECLINES ADDITIONAL REQUESTS OR COMPLAINTS. CALL LIGHT WITHIN REACH. BED RAILS UP. PTS PRIMARY RN UPDATED.
--- NOTE | 2021-10-04 18:23 | NUR ---
RN IN ROOM TO ADMINISTER PRN ANTINAUSEA MEDS - PT STATES PAIN AND NAUSEA ARE PERSISTANT AND UNRELIEVED BY PREVIOUS PRNS. IV SITE TOLERATING FLUIDS WITHOUT DIFFICULTY.
--- NOTE | 2021-10-04 19:00 | NUR ---
shift report received from mario brock at bedside. pt awake and resting in bed, on ra. rr even and unlabored, no distress noted. pt visiting with visitor in room. iv fluids infusing, iv site wnl. pt asking for something "good to eat", pt educated on current diet orders and diet options. discussed poc with pt. questions answered, call light in reach.
--- NOTE | 2021-10-04 20:17 | NUR ---
PT CALLED FOR PRN PAIN AND NAUSEA MEDS. ADMINISTERED THOSE AND SCHEDULED MEDS EXCEPT CARAFATE WHICH WILL BE ADMINISTERED LATER. PT DENIES FURTHER CONCERNS.
--- NOTE | 2021-10-04 21:15 | NUR ---
ASSESSMENT COMPLETE, REMAINING SCHEDULED MEDS GIVEN (SEE EMAR). pt DENEIS NAUSEA, BOWEL TONES ACTIVE AND pt REPORTS PASSING GAS. pt STATES, "WELL CAN I AT LEAST GET ANY CRACKERS". pt AGAIN EDUCATED ON CURRENT CLEAR LIQUID DIET AND OPTIONS R/T DIET ORDER. POC DISCUSSED THAT MD PUT pt BACK ON A CLEAR LIQUID DIET D/T NAUSEA/ABD PAIN/EMESIS EPISODE ON DAYSHIFT. pt AGREES TO DIET APPROAVED JUICE AND JELLO. NO FURTHER NEEDS, CALL LIGHT IN REACH. VSS AND I&O'S COMPLETE.
--- NOTE | 2021-10-04 22:54 | NUR ---
pt RESTING QUIETLY IN BED, EYES CLOSED. RR EVEN AND UNLABORED, NO DISTRESS NOTED. pt AWOKE BRIEFLY, DENIED NEEDS OR CONCERNS. CALL LIGHT INR EACH, IV SITE WNL WITH FLUIDS INFUSING DIRECTED. WILL MONITOR FOR CHANGES.
--- NOTE | 2021-10-05 01:00 | NUR ---
in room to hang second and final bag iv fluids, iv site wnl. pt reports tolerable pain 3-4/10 pain and continues to report nausea is resolved. deneis need for pain or nausea meds, fresh water and juice provided and bsc also emptied. call light in reach.
--- NOTE | 2021-10-05 01:28 | NUR ---
call light answered, pump alarming-issue resolved. iv site remains wnl. no further needs, call light in reach.
--- NOTE | 2021-10-05 03:15 | NUR ---
ASSESSMENT COMPLETE, pt CONTINUES TO REPORT TOLERABLE 3/10 PAIN, DENEIS NEED FOR PAIN AND NAUSEA MEDICATION. BOWEL TONES ACTIVE. IV SITE WNL, FLUIDS INFUSING DIRECTED. NO ACUTE CHANGES, CALL LIGHT IN REACH.
--- NOTE | 2021-10-05 04:50 | NUR ---
iv site wnl, fluids paused per clinical judgement to allow lab to draw am labs. fluids infusing has potassium in it and won't be done before am meeting. no further needs, angélica naranjo in room for vs and i&o's. call light in reach.
--- NOTE | 2021-10-05 06:53 | NUR ---
scheduled am meds given, see emar. pt reports pain improved and now rates as 3/. iv site wnl, fluids infusing as directed wnl. call light in reach.
--- NOTE | 2021-10-05 07:30 | NUR ---
PATIENT AWAKE WHEN THIS RN AND MARY RASCON WENT IN FOR REPORT. PATIENT DENIES NAUSEA AND NO NEED FOR PAIN MEDS AT THIS TIME. CALL LIGHT IS IN REACH.
--- NOTE | 2021-10-05 09:33 | NUR ---
THIS RN COMPLETED AM ASSESSMENT. PATIENT UP IN THE ROOM INDEPENDENTLY. PATIENT DENIES NAUSEA, BUT SAYS SHE IS HAVING 7-8/10 ABD AND NECK PAIN AND REQUESTING PAIN MEDICATION, BUT HER NORCO DOSE ISN'T DUE FOR 4 MORE HOURS. GI COCKTAIL GIVEN. EXPRESSED TO CHARGE NURSE THAT PATIENT IS REQUESTING PAIN MEDICATION AND SHE WILL TALK TO ABOUT THIS IN THE AM MEETING THAT IS STARTING. PATIENT'S CALL LIGHT IS IN REACH AND SHE HAS NO OTHER CARE NEEDS AT THIS TIME.
--- NOTE | 2021-10-05 12:23 | NUR ---
THIS RN IN TO SEE PATIENT. GI COCKTAIL KNOCKED PATIENT'S PAIN DOWN TO A 3/10 FROM 8. PATIENT WORKING ON HER NEW FULL LIQUID DIET. CALLED KITCHEN TO GET CREAM OF MUSHROOM SOUP THEY SENT UP TOMATO SOUP AND THE PATIENT HAS GASTRITIS. PATIENT DENIES ANY OTHER NEEDS AT THIS TIME. CALL LIGHT IS IN REACH. ON HIS WAY IN TO SEE PATIENT.
[2021-10-05] MEDS ORDERED: NICOTINE1 EAC2 TD (12:28)
[2021-10-05] MEDS ORDERED: NICOTINE LOZENGE4 MG BUCCAL (12:29)
[2021-10-05] MEDS ORDERED: PROMETHAZINE HC25 M1 PO (12:29)
[2021-10-05] MEDS ORDERED: HYDROCODON-ACE1 EAC8 PO (12:29)
[2021-10-05] MEDS ORDERED: MAG-AL LIQUID30 ML PO (12:32)
[2021-10-05] MEDS ORDERED: PROCHLORPERAZIN10 MG PO (12:32)
[2021-10-05] MEDS ORDERED: ONDANSETRON ODT4 MG SL (12:33)
[2021-10-05] MEDS ORDERED: SUCRALFATE1 GM PO (12:33)
[2021-10-05] MEDS ORDERED: OMEPRAZOLE20 MG PO (12:45)
--- NOTE | 2021-10-05 13:46 | NUR ---
PT READY FOR DISCHRAGE. PT CALL LIGHT ON. PT REPROTS SHE IS READY TO GO AND WOULD LIKE A PAIN PILL BEFORE LEAVING. PT REPORTS 8/10 PAIN IN NECK AND ABODMEN, SEE MAR FOR MEDICATION GIVEN. VITAL SIGNS REMAIN STABLE. IV DC'D PER PROTOCOL, GAUZE AND COBAN APPLIED. PT INSTRUCTED TO REMOVE COBAN ONCE HOME. PT DRESSE SELF. NO ASSISTANC NEEDED. DISCHRAGE INSTRUCTIONS REVEIWED WITH PT. PT VERBALIZES UNDERSTANDING OF INSTRUCTIONS, MEDICATIONS, ALOCHOL AVOIDANCE, AND FOLLOW UP. PT TRANSFERES SELF TO WHEELCHAIR, AND IS WHEELED FROM MED/SURG TO MEET HER MOTHER AT FRONT OF HOSPITAL. NO ADDITIONAL REQUSTS OR CONCERNS.
== END 2021-10-05 14:00 | disposition home or self-care (01) | DRG 378 ==
LOC: ED 18:34 → CCU 23:59 → MS 10-03 12:20
PROVIDERS: ADMIT Internal Medicine; ATTEND Internal Medicine
DX: K29.21 Alcoholic gastritis with bleeding (principal); D62 Acute posthemorrhagic anemia; K70.10 Alcoholic hepatitis without ascites; D69.59 Other secondary thrombocytopenia; Z20.822 Contact with and (suspected) exposure to COVID-19; D64.89 Other specified anemias; F10.10 Alcohol abuse, uncomplicated; E87.6 Hypokalemia; E03.9 Hypothyroidism, unspecified; G89.4 Chronic pain syndrome; G47.00 Insomnia, unspecified; K21.9 Gastro-esophageal reflux disease without esophagitis; Z90.710 Acquired absence of both cervix and uterus; Z90.49 Acquired absence of other specified parts of digestive tract; Z98.890 Other specified postprocedural states
CPT/HCPCS: 36415; 74177; 80048; 80053; 81001; 83690; 83735; 84703; 85025; 85060; 86850; 86900; 86901; 86922; 87045; 96375; 99285-25; A9270; C9113; J0744; J0780; J1170; J1790; J2270; J2405; J2550; J3475; J3480; J7030; J7121; Q9967; U0003

== ENCOUNTER 2022-01-14 16:05 | Emergency (ER) | payer OTHER ==
[~2022-01-14] VITALS: Ht 165.1 cm; Wt 54.0 kg
[~2022-01-14 16:05] MED LIST changes: +HYDROCODON-ACE1 EAC8 PO; +MAG-AL LIQUID30 ML PO; +NEURONTIN300 MG PO; +NICOTINE LOZENGE4 MG BUCCAL; +NICOTINE1 EAC2 TD; +ONDANSETRON ODT4 MG SL; +PROCHLORPERAZIN10 MG PO; +SUCRALFATE1 GM PO
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
[2022-01-14] MEDS ORDERED: CHLORDIAZEPOXID25 MG PO (19:03)
[2022-01-14] MEDS ORDERED: PROTONIX40 MG PO (19:03)
--- NOTE | 2022-01-16 19:48 | EKG ---
[facility] [address] [facility] [place] [address] Signed Sinus tachycardia Otherwise normal ECG When compared with ECG of 20-MAR-2018 18:55, No significant change was found Confirmed by Ruth Ann Jimenes MD () on 01/16/2022 7:48:35 PM Electronically Signed By: RUTH ANN JIMENES MD 01/16/221947 PATIENT NAME: YARELI NAVARRO Electrocardiogram DATE OF : 78 PHYSICIAN: RUTH ANN JIMENES MD REPORT #: [id number] REPORT IS CONFIDENTIAL AND NOT TO BE RELEASED WITHOUT AUTHORIZATION
== END 2022-01-14 19:32 | disposition home or self-care (01) ==
LOC: ED 16:05
DX: K29.00 Acute gastritis without bleeding (principal); F10.19 Alcohol abuse with unspecified alcohol-induced disorder; K21.9 Gastro-esophageal reflux disease without esophagitis; Z79.899 Other long term (current) drug therapy
CPT/HCPCS: 36415; 80053; 81001; 83690; 83735; 84703; 85025; 86850; 86900; 86901; 93005; 93010; 96374; 96375; 99284-25; C9113; J1170; J2060; J2405; J7030

== ENCOUNTER 2024-10-09 07:11 | Emergency (ER) | payer OTHER ==
[~2024-10-09] VITALS: Ht 165.1 cm; Wt 50.0 kg
[~2024-10-09 07:11] MED LIST changes: +CHLORDIAZEPOXID25 MG PO; +PROTONIX40 MG PO
[2024-10-09] MEDS ORDERED: OXYMORPHONE HCL15 MG PO (07:20)
[2024-10-09] MEDS ORDERED: LEVOTHYROXINE200 MCG PO (07:21)
[2024-10-09] MEDS ORDERED: CYCLOBENZAPRINE10 MG PO (07:21)
[2024-10-09] MEDS ORDERED: PENICILLIN V POTASSIUM 500 MG TAB PO ONE (07:45)
[2024-10-09] MEDS ORDERED: PENICILLIN V P500 MG PO (07:51)
[2024-10-09 07:56] VITALS: BP 147/74
[2024-10-10] MEDS ORDERED: ONDANSETRON ODT4 MG PO (11:50)
[2024-10-10] MEDS ORDERED: HYDROCODON-ACE1 EA10 PO (16:58)
== END 2024-10-09 07:57 | disposition home or self-care (01) ==
LOC: ED 07:11
DX: K04.7 Periapical abscess without sinus (principal); K02.9 Dental caries, unspecified; K21.9 Gastro-esophageal reflux disease without esophagitis; Z79.899 Other long term (current) drug therapy
CPT/HCPCS: 64400; 99282-25

== ENCOUNTER 2024-10-09 14:00 | Emergency (ER) | payer OTHER ==
[~2024-10-09] VITALS: Ht 165.1 cm; Wt 50.0 kg
[~2024-10-09 14:00] MED LIST changes: +LEVOTHYROXINE200 MCG PO; +OXYMORPHONE HCL15 MG PO; +PENICILLIN V P500 MG PO
--- OUTSIDE RECORDS SUMMARY | 2024-10-09 14:07 | XMS ---
PreManage Notification: YARELI NAVARRO Security Psychiatric Aide Instructor Events No recent Security Events currently on file CRITERIA MET - [facility] - 2 Visits in 30 Days CARE PROVIDERS Anamika Bonilla Nurse Practitioner: 07/02/2018-Current PHONE: Unknown -, [facility] Dentist: [employer] [facility] PHONE: [phone] -[place]- Dentist: [employer] [facility] PHONE: [phone] [facility] CARE SYSTEM \F\ <UNAVAIL> PHONE: [phone] Molly Rogers Nurse Practitioner: [facility] [employer] [employer] PHONE: Unknown [facility] Obstetrics \T\ Gynecology Current PHONE: [phone] Susy has no Care Guidelines for this patient. Kristel VISIT COUNT (12 MO.) 2 [facility] TOTAL 2 NOTE: Visits indicate total known visits. ED/UCC VISIT TRACKING (12 MO.) 10/09/2024 14:01 [facility] [place] TYPE: Emergency COMPLAINT: - TOOTH PAIN 10/09/2024 07:11 [facility] [place] TYPE: Emergency COMPLAINT: - TOOTH PAIN INPATIENT VISIT TRACKING (12 MO.) No inpatient visits to display in this time frame [email or web address]
[2024-10-09 14:54] LABS: BASOPHILS 0.5 % (0.1-1.2); EOSINOPHILS 3.9 % (0.7-5.8); HEMATOCRIT 35.2 % (34.1-44.9); LYMPHOCYTES 18.6 % (19.3-51.7); MCH 28.3 PG (25.6-32.2); MCHC 34.1 g/dL (32.2-35.5); MONOCYTES 1.6 % (4.7-12.5); NEUTROPHILS 75.1 % (34.0-71.1); PLATELET COUNT 122 K/uL (182-369); RBC 4.24 M/uL (3.93-5.22)
[2024-10-09 15:10] LABS: ALBUMIN 4.2 g/dL (3.4-5.0); ALBUMIN/GLOBULIN RATIO 1.35 (1.1-2.4); ANION GAP 8.7 (7-21); BILIRUBIN, TOTAL 0.9 mg/dL (0.2-1.0); BUN/CREATININE RATIO 22.09 (6.0-28.6); CALCIUM 9.4 mg/dL (8.5-10.1); CREATININE, SERUM 0.86 mg/dL (0.55-1.02); POTASSIUM 2.7 mmol/L (3.5-5.1); PROTEIN, TOTAL 7.3 g/dL (6.4-8.2)
[2024-10-09 15:15] LABS: LACTIC ACID, BLOOD 0.8 mmol/L (0.4-2.0)
[2024-10-09] MEDS ORDERED: ACETAMINOPHEN 500 MG TAB PO ONE (15:30)
[2024-10-09] MEDS ORDERED: AMP/SULBACTAM SOD 3 GM in SODIUM CHLORIDE 0.9% 100 ML IV ONE (16:00)
[2024-10-09] MEDS ORDERED: POTASSIUM CHLORIDE 10 MEQ TABCR PO ONE (17:00)
[2024-10-09] MEDS ORDERED: SODIUM CHLORIDE 0.9% 1,000 ML IV PRN (17:00)
[2024-10-09] MEDS ORDERED: POTASSIUM CHLORIDE 20 MEQ/15 ML CUP PO ONE (17:00)
[2024-10-09 17:49] LABS: BILIRUBIN, URINE NEGATIVE (negative); BLOOD/HGB, URINE TRACE-I (Negative); KETONE, URINE NEGATIVE (Negative); LEUK ESTERASE, URINE NEGATIVE (negative); NITRITE, URINE POSITIVE (negative); PH, URINE 6.5 (5-7)
[2024-10-09 17:57] LABS: EPITHELIAL CELLS, URINE SQUAMOUS 1+ /lpf (0-1+)
[2024-10-09 17:58] LABS: BACTERIA, URINE 4+ /hpf (negative); CASTS, URINE NONE SEEN \\lpf; COLLECTION TYPE, URINE CLEAN CATCH; CRYSTALS, URINE NONE SEEN (0-1+); REFLEX CULTURE, URINE Yes (No)
[2024-10-09] MEDS ORDERED: PENICILLIN V POTASSIUM 500 MG HOME.PACK PO ONE (19:00)
[2024-10-09] MEDS ORDERED: KETOROLAC TROMETHAMINE 30 MG/ML VIAL IV ONE (19:00)
[2024-10-09 19:30] VITALS: BP 100/67
[2024-10-10] MEDS ORDERED: ONDANSETRON ODT4 MG PO (11:50)
[2024-10-10] MEDS ORDERED: HYDROCODON-ACE1 EA10 PO (16:58)
== END 2024-10-09 19:32 | disposition home or self-care (01) ==
LOC: ED 14:00
PROVIDERS: Emergency Medicine
DX: K04.7 Periapical abscess without sinus (principal); K21.9 Gastro-esophageal reflux disease without esophagitis; Z79.899 Other long term (current) drug therapy
CPT/HCPCS: 36415; 70487; 71045; 80053; 81001; 83605; 85025; 87040; 87088; 96375; 99284-25; A9270; J0295; J1885; J7030; Q9967

== ENCOUNTER 2024-10-10 11:33 | Emergency (ER) | payer OTHER ==
[~2024-10-10] VITALS: Ht 165.1 cm; Wt 50.0 kg
--- OUTSIDE RECORDS SUMMARY | 2024-10-10 11:40 | XMS ---
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 No recent Security Events currently on file CRITERIA MET - [facility] - 2 Visits in 30 Days CARE PROVIDERS Anamika Bonilla Nurse Practitioner: 07/02/2018-Current PHONE: Unknown -, [facility] Dentist: Roofing Tile Sorter [facility] PHONE: [phone] -Mervat- Dentist: Roofing Tile Sorter [facility] PHONE: [phone] [facility] \F\ <UNAVAIL> PHONE: [phone] Molly Rogers Nurse Practitioner: [facility] SUPERVISOR ADULT EDUCATION PHONE: Unknown LASHANDA DALTON Obstetrics \T\ Gynecology Current PHONE: [phone] Susy has no Care Guidelines for this patient. Kristel VISIT COUNT (12 MO.) 3 [facility] TOTAL 3 NOTE: Visits indicate total known visits. ED/UCC VISIT TRACKING (12 MO.) 10/10/2024 11:33 [facility] [place] TYPE: Emergency COMPLAINT: - DENTAL PAIN 10/09/2024 14:01 [facility] [place] TYPE: Emergency COMPLAINT: - TOOTH PAIN 10/09/2024 07:11 [facility] [place] TYPE: Emergency COMPLAINT: - TOOTH PAIN INPATIENT VISIT TRACKING (12 MO.) No inpatient visits to display in this time frame [email or web address]
[2024-10-10] MEDS ORDERED: ONDANSETRON ODT4 MG PO (11:50)
[2024-10-10 11:59] LABS: BASOPHILS 0.2 % (0.1-1.2); EOSINOPHILS 1.8 % (0.7-5.8); HEMATOCRIT 35.5 % (34.1-44.9); HEMOGLOBIN 11.6 g/dL (11.2-15.7); MCHC 32.7 g/dL (32.2-35.5); MCV 85.7 fL (79.4-94.8); MONOCYTES 5.2 % (4.7-12.5); NEUTROPHILS 81.4 % (34.0-71.1); PLATELET COUNT 95 K/uL (182-369); RBC 4.14 M/uL (3.93-5.22)
[2024-10-10] MEDS ORDERED: KETAMINE in NS 50 MG/5 ML SYR IV ONE (12:15)
[2024-10-10 12:19] LABS: ALBUMIN 3.7 g/dL (3.4-5.0); ALBUMIN/GLOBULIN RATIO 1.12 (1.1-2.4); ANION GAP 11.4 (7-21); BILIRUBIN, TOTAL 0.8 mg/dL (0.2-1.0); BUN/CREATININE RATIO 13.41 (6.0-28.6); CREATININE, SERUM 0.82 mg/dL (0.55-1.02); POTASSIUM 3.4 mmol/L (3.5-5.1)
[2024-10-10] MEDS ORDERED: KETAMINE in NS 50 MG/5 ML SYR IV PRN ×2 (12:45→13:30)
[2024-10-10] MEDS ORDERED: AMP/SULBACTAM SOD 3 GM in SODIUM CHLORIDE 0.9% 100 ML IV ONE (13:45)
[2024-10-10] MEDS ORDERED: HYDROmorphone HCL 1 MG/ML SYR IV PRN (14:15)
[2024-10-10 16:09] VITALS: BP 108/71
[2024-10-10] MEDS ORDERED: HYDROCODON-ACE1 EA10 PO (16:58)
== END 2024-10-10 17:10 | disposition home or self-care (01) ==
LOC: ED 11:33
PROVIDERS: Emergency Medicine
DX: K04.7 Periapical abscess without sinus (principal); E03.9 Hypothyroidism, unspecified; K21.9 Gastro-esophageal reflux disease without esophagitis; Z79.890 Hormone replacement therapy; Z79.899 Other long term (current) drug therapy
CPT/HCPCS: 36415; 41800; 70487; 80053; 85025; 99283-25; J0295; J1171; J3490; Q9967

== ENCOUNTER 2024-12-28 17:54 | Emergency (ER) | payer OTHER ==
[~2024-12-28] VITALS: Ht 165.1 cm; Wt 51.0 kg
[~2024-12-28 17:54] MED LIST changes: +HYDROCODON-ACE1 EA10 PO; +ONDANSETRON ODT4 MG PO
[2024-12-28] MEDS ORDERED: PROMETHAZINE HC25 M1 PO (18:15)
[2024-12-28] MEDS ORDERED: HYDROCODONE BIT/ACETAMINOPHEN 5/325 MG 1 TAB HOME.PACK PO ONE (20:00)
[2024-12-28 20:21] VITALS: BP 113/79
== END 2024-12-28 20:25 | disposition home or self-care (01) ==
LOC: ED 17:54
DX: S91.202A Unspecified open wound of left great toe with damage to nail, initial encounter (principal); E03.9 Hypothyroidism, unspecified; Z79.890 Hormone replacement therapy; W01.0XXA Fall on same level from slipping, tripping and stumbling without subsequent striking against object, initial encounter
CPT/HCPCS: 73630; 99283; A9270